=== PATIENT | female | born 1975 | race Caucasian/White ===

== ENCOUNTER → 2019-12-07 13:27 | Outpatient (BNVA) | payer OTHER, SELFPAY | PROVIDERS: Visit Provider Physician Assistant | DX: E66.9 Obesity, unspecified (principal); Z68.31 Body mass index [BMI] 31.0-31.9, adult; Z98.84 Bariatric surgery status | CPT/HCPCS: 99214 ==

== ENCOUNTER 2020-01-14 11:14 | Outpatient (REF) | payer OTHER, SELFPAY ==
[2020-01-14 12:47] LABS: MANUAL DIFF FLAG NO
[2020-01-14 12:59] LABS: Basophils Percent Auto 0.4 % (0-2); Eosinophils Absolute Auto 0.1 X10*3/uL (0.0-0.4); Eosinophils Percent Auto 0.8 % (0-4); Hemoglobin 12.3 g/dl (12.0-16.0); Imm Gran Abs Auto 0.02 X10*3/uL (0.00-0.03); Imm Gran Pct Auto 0.3 % (0.0-0.4); Lymphocytes Absolute Auto 1.6 X10*3/uL (1.2-4.9); Lymphocytes Percent Auto 22.3 % (20-40); Mean Corpuscular HGB Conc 31.5 g/dl (31.0-35.0); Mean Corpuscular Hemoglobin 26.7 pg (27.0-33.0); Mean Corpuscular Volume 84.6 fL (80-98); Mean Platelet Volume 9.5 fL (9.4-12.3); Monocytes Absolute Auto 0.6 X10*3/uL (0.1-1.2); Monocytes Percent Auto 7.9 % (2-11); Neutrophils Absolute Auto 4.9 X10*3/uL (2.0-8.3); Neutrophils Percent Auto 68.3 % (45-73); Platelet Count 346 X10*3/uL (160-400); Red Blood Count 4.61 X10*6/uL (4.20-5.50); Red Cell Distribution Width 12.9 % (11.0-16.0); White Blood Count 7.1 X10*3/uL (4.8-10.8)
[2020-01-14 13:08] LABS: Estimated Average Glucose 97 mg/dL
[2020-01-14 13:22] LABS: C Reactive Protein 0.31 mg/dL (< or = 0.50); Cholesterol 264 mg/dL; HDL Cholesterol 65 mg/dL; Iron 42 mcg/dL (30-160); LDL Cholesterol Calculated 187 mg/dl; Percent Iron Saturation 10 % (15-50); Total Iron Binding Capacity 442 mcg/dL (228-428); Triglycerides 62 mg/dL; Unsaturated Iron Binding 400 ug/dL
[2020-01-14 13:43] LABS: Ferritin 7 ng/mL (10-250); TSH reflex Free T4 0.32 mIU/mL (0.32-4.0); Vitamin D 25-OH Total 35.1 ng/mL (>30)
[2020-01-14 13:54] LABS: Folate 15.5 ng/mL (> or = 4.0); Vitamin B12 636 pg/mL (200-900)
[2020-01-15 07:16] LABS: Insulin Level Total 3.7 uIU/mL
[2020-01-17 13:12] LABS: Calcium (PTHI) 9.6 mg/dL (8.6-10.2); PTHI 54 pg/mL (14-64)
[2020-01-17 14:22] LABS: Zinc 72 mcg/dL (60-130)
[2020-01-20 11:36] LABS: Vitamin B1 7 nmol/L (8-30)
[2020-01-20 23:56] LABS: Vitamin A 34 mcg/dL (38-98)
== END 2020-01-14 11:15 | disposition home or self-care (01) ==
LOC: HO.LAB 11:14
PROVIDERS: Visit Provider Physician Assistant
DX: E66.3 Overweight (principal); Z98.84 Bariatric surgery status
CPT/HCPCS: 36415; 80061; 82306; 82607; 82728; 82746; 83036; 83519; 83525; 83540; 83970; 84425; 84443; 84590; 84630; 85025; 86140

== ENCOUNTER → 2022-08-08 10:59 | Outpatient (BNVA) | payer OTHER, SELFPAY | PROVIDERS: PCP Internal Medicine; Visit Provider Physician Assistant Surgical | DX: E66.9 Obesity, unspecified (principal); R11.0 Nausea; Z98.84 Bariatric surgery status; Z68.41 Body mass index [BMI] 40.0-44.9, adult | CPT/HCPCS: 99212 ==

== ENCOUNTER 2023-11-04 13:01 | Outpatient (AMB) | payer OTHER, SELFPAY ==
--- NOTE | 2023-11-04 13:01 | MHC.OFFVISWM ---
VS Expanded 11/04/23 13:14 Height 5 ft Weight 221 lb 8 oz BMI 43.3 Intake Visit Reasons: (TV) POST LSG 12/25/2017 Allergies hydrocodone [From VICODIN] Allergy (Unknown, Verified 08/08/22 11:23) SWELLING, DIFF SWALLOWING morphine [MORPHINE] Allergy (Unknown, Verified 08/08/22 11:23) PASSED OUT Penicillins [PENICILLINS] Allergy (Unknown, Verified 08/08/22 11:23) SWELLING, DIFF SWALLOWING Morphine Allergy (Unknown, Uncoded 06/02/19 00:00) low resp rate Penicillin Allergy (Unknown, Uncoded 06/02/19 00:00) itchhing,hives, swelling of throat vicodine Allergy (Unknown, Uncoded 06/02/19 00:00) itching, hivese, swelling of throat Medication List - Last Reconciled 11/04/23 by JAI Roberts cholecalciferol (vitamin D3) 25 mcg PO DAILY cyanocobalamin (vitamin B-12) 1,000 mcg PO DAILY iron,carbonyl-vitamin C 65 mg iron- 125 mg (Vitron-C) 1 tab PO DAILY multivit with min-folic acid 200 mcg tabs PO ondansetron 4 mg PO Q8H PRN pantoprazole 20 mg PO DAILY vitamin A 10,000 units PO DAILY HPI Comments Details: This?is a?48?yo female who is s/p LSG 12/25/2017. Weight at last visit on 08/08/2022 was 217.4 pounds with a BMI of 42.5, weight today is 221.5 pounds, representing a 43.3 pound weight loss with a BMI today of 43.3.? Pt reports a difficult bout with depression, comfort eating, binge eating, resulted in weight gain. She asks about revision and GLP1 drugs. Has been worked up in the past for episodes of syncope during exercise. Present meal plan includes: Premier premade protein shake for breakfast 8am 12pm salad or another shake dinner protein and vegetables admits she does not always make the best food choices, chooses quick things, starches Exercise routine includes: no current regimen but likes to walk sometimes does home videos [facility] Medical History (Updated 12/07/19 @ 13:30 by Yue G. Bradley, PA-C) Arthritis History of PCOS Obesity Sciatica Hyperlipidemia type II Depression Surgical History Hx laparoscopic cholecystectomy Hx of foot surgery Hx of hysterectomy Previous section S/P laparoscopic sleeve gastrectomy Status post laser cataract surgery of left eye Family History Mother Thyroid disease CHF (congestive heart failure) Father Hypertension High cholesterol Sister Hyperglycemia Sister No problems noted. Son No problems noted. Daughter No problems noted. Social History Alcohol intake: never Patient Tobacco Use Status: Never used Tobacco Telehealth Telehealth Telehealth Platform: Telephone Location of provider rendering services: other Location of patient: address on file Patient Identification confirmed using: Name, : Yes Telehealth method: voice only Patient verbally consented to treatment: Yes Patient verbally consented to billing insurance company: Yes Patient informed of any privacy concerns related to visit: Yes Minutes spent on Phone/Video with Pt.: 15 Assessment & Plan Assessment & Plan (1) S/P laparoscopic sleeve gastrectomy: Code(s): Z98.84 - Bariatric surgery status Category: Surgical (2) Obesity: Code(s): E66.9 - Obesity, unspecified Category: Medical Plan Sent pt yohan info to create a meal plan that works for her. If her PCP is agreeable to GLP1 agonists I can provide letter of support or office notes. Labs ordered. Pt will text me to let me know how plan is going for her. RTC 6-8 weeks, will also set up appt with Viviana as pt does not have a community therapist and is interested in coping stratgies to help avoid stress/emotional eating. I spent a total of 30 minutes reviewing/updating records, examining the patient and counseling the patient on weight management as detailed above. Orders: Orders Hemoglobin A1c Today Z98.84 - Bariatric surgery status Complete Blood Count Auto Diff Today Z98.84 - Bariatric surgery status Lipid Panel Today Z98.84 - Bariatric surgery status Vitamin B12 and Folate Today Z98.84 - Bariatric surgery status Zinc Today Z98.84 - Bariatric surgery status TSH reflex Free T4 Today Z98.84 - Bariatric surgery status Ferritin Today Z98.84 - Bariatric surgery status Insulin Today Z98.84 - Bariatric surgery status IRON PROFILE Today Z98.84 - Bariatric surgery status Comprehensive Met. Panel Today Z98.84 - Bariatric surgery status C Reactive Protein Today Z98.84 - Bariatric surgery status Vitamin B1 Today Z98.84 - Bariatric surgery status Vitamin A Today Z98.84 - Bariatric surgery status Vitamin D 25-OH Total Today Z98.84 - Bariatric surgery status
--- OUTSIDE RECORDS SUMMARY | 2023-11-04 13:02 | XMS_ITS | Continuity of Care Document ---
Author Organization [facility] Address [address] [place] [address]- Care Team Providers Care Health Information Clerk Name Role Phone Not on Staff, PCP Primary Care Physician Unavail able Encounter [facility] Date(s): 10/25/22 - 10/25/[address] [address]- Encounter Diagnosis Mesenteric panniculitis(Final) - 10/25/22 Discharge Disposition: A-D/C Home Attending Physician: Poli Brown MD Admitting Physician: Poli Brown MD Referring Physician: Not on Staff, Referring MD Allergies, Adverse Reactions, Alerts Substance Reaction Severity Status penicillin Swelling of throat Active Dogs Active morphine difficulty breathing, eyes rolled back in her head Active Vicodin Swelling of throat Active Cats Active Medications Multivitamin 1 tablet, By Mouth, Daily, 0 Refills, Maintenance, 03/28/21 15:49:00 EST, Partial fill upon patientrequest if the prescription is for a schedule II opioid drug. Start Date: 03/28/21 Status: Ordered Omeprazole By Mouth, Daily, 0 Refills, Maintenance, 10/25/22 11:22:00 EDT, Partial fill upon patient request if the prescription is for a schedule II opioid drug. Start Date: 10/25/22 Status: Ordered Tylenol Extra Strength = 1,000 mg, By Mouth, Every 6 hours, PRN Pain , Moderate, 0 Refills, Maintenance, 07/13/16 20:29:57 Start Date: 07/13/16 Status: Ordered Vitamin B12 50 mcg oral tablet 1 tablet = 50 mcg, By Mouth, Daily, # 30 tablet, 0 Refills, Maintenance, 03/28/21 15:49:00 EST, Tablet, Partial fill upon patient request if the prescription is for a schedule II opioid drug. Start Date: 03/28/21 Status: Ordered Vitamin D3 1000 intl units oral tablet 1 tablet = 25 mcg, By Mouth, Daily, # 30 tablet, 0 Refills, Maintenance, 03/28/21 15:49:00 EST, Tablet, Partial fill upon patient request if the prescription is for a schedule II opioid drug. Start Date: 03/28/21 Status: Ordered Problem List Condition Confirmation Course Effective Dates Status Roxanne Donahue Severe obesity Confirmed Active Results Radiology Reports * Exam Date Time Procedure Performing Provider Status 10/25/22 2:[address] Abdomen and Pelvi s W/O Contrast Radha Garcia; Auth (Verified) Notes: (CT Abdomen and Pelvis W/O Contrast) Reason For Exam: Flank pain, kidney stone suspected;Other: RESULT: CT Abdomen and Pelvis W/O Contrast CT Abdomen and Pelvis W/O Contrast Hx of Present Illness: Left upper quadrant pain. TECHNIQUE: Spiral CT through the abdomen and pelvis without IV contrast formatted in 3 planes. Thisstudy was performed oral contrast. Weight-based protocol using automatic tube modulation was used to optimize exposure parameters. CTDIvol Body: 25.18 mGy, DLP Body: 1291 mGy*cm. COMPARISON: None FINDINGS: Medical Appointment Scheduler View Findings, Lines and Tubes: None. Visualized Chest: Lung bases are clear. No pleural effusion. The heart is normal in size. No pericardial effusion. Diaphragm: Normal. Liver: Normal. Gallbladder: Absent consistent with prior cholecystectomy. Bile ducts: No biliary ductal dilation. Spleen: Normal. Pancreas: Normal. Adrenal glands: Normal. Kidneys and ureters: No hydronephrosis, stones, or noncontrast evidence of suspicious masses. Bladder: Normal. Reproductive organs: Unremarkable. Stomach, small bowel, and large bowel: Status post sleeve gastrectomy. No obstruction. No inflammatory change. Appendix: Not seen, but no evidence of appendicitis. Peritoneum and retroperitoneum: No ascites or pneumoperitoneum. Stranding of the central mesentery with multiple tiny mesenteric lymph nodes. Lymph nodes: No enlarged lymph nodes. Blood vessels: Normal. No aneurysm. Abdominal and pelvic wall: Unremarkable. Bones: No acute abnormality. IMPRESSION: Mild mesenteric edema suggesting mesenteric panniculitis. No acute abnormality. No renal calculi as queried. WSN: [id number] Ordering Physician: Poli Brown Dictated By: Juan M Howard MD Dictated Date/Time: 10/25/22 3:13 pm Reviewed By: Juan M Howard MD Signed By: Juan M Howard MD Signed Date/Time: 10/25/22 3:13 pm Transcribed By: CANDI Transcribed Date/Time: 10/25/22 3:04 pm Vital Signs Most recent to oldest [Reference Range]: 1 2 3 Height 153 cm (10/25/22 3:45 PM) 153 cm (10/25/22 1:40 PM) 153 cm (10/25/22 11:21 AM) Weight 99.8 kg (10/25/22 11:21 AM) Oxygen Saturation [94-100 %] 97 % (10/25/22 3:45 PM) 99 % (10/25/22 1:40 PM) 98 % (10/25/22 11:21 AM) Pulse Rate [55-90 bpm] 55 bpm (10/25/22 3:45 PM) 63 bpm (10/25/22 1:40 PM) 64 bpm (10/25/22 11:21 AM) Blood Pressure [90-138/55-84 mm Hg] 145/97mm Hg *H* (10/25/22 3:45 PM) 126/58mm Hg (10/25/22 1:40 PM) 165/96mm Hg *H* (10/25/22 11:21 AM) Respiratory Rate [16-30 br/min] 18 br/min (10/25/22 1:40 PM) 16 br/min (10/25/22 11:21 AM) Temperature [96.8-100.4 DegF] 98.2 DegF (10/25/22 3:45 PM) 98.2 DegF (10/25/22 1:40 PM) 97.5 DegF (10/25/22 11:21 AM) Mode of Delivery (Oxygen) Room air (10/25/22 3:45 PM) Room air (10/25/22 1:40 PM) Room air (10/25/22 11:21 AM) Blood pressure sites Arm, right (10/25/22 3:45 PM) Arm, left (10/25/22 1:40 PM) Temperature Route Oral (10/25/22 1:40 PM) Dry Weight 99.8 kg (10/25/22 11:21 AM) Dry Weight Obtained Via Standing scale (10/25/22 11:21 AM) Social History Social History Type Response Tobacco Other: Lifetime non- smoker. Sex Patient Care team information Care Team Personnel Name: Not on Staff, PCP Position: [facility] Physician (General Medicine) Member Role: PCP Name: Dyan Farfan RN Position: [facility] ED RN W/OE and Tasks Member Role: Patient Care Provider Name: Poli Brown MD Position: [facility] ED Medicine MD Member Role: Admitting Physician Address: Address: [address] [place] [address] Department of Emergency Medicine [address] Name: Marianna Beltran Position: [facility] ED TA [facility] Member Role: Microbiological Lab Technician Care Team Related Persons Name: ITA JAROD Address: home [address] [place] [id number] Name: QUYNH GARCIA Name: MEKA PRATER Address: home [address] [place] [id number] Name: KENROY GARCÍA Address: home [address] [place] [address]
--- OUTSIDE RECORDS SUMMARY | 2023-11-04 13:02 | XMS_ITS | Continuity of Care Document ---
Author Organization [facility] Address [address] [place] [id number]- Care Team Providers Care Fibre Technologist Name Role Phone Not on Staff, PCP Primary Care Physician Unavail able Encounter [facility] Date(s): 04/10/21 - 04/10/[address] [id number] Discharge Disposition: A-D/C Home Attending Physician: Redd Gtz DPM Admitting Physician: Redd Gtz DPM Referring Physician: Redd Gtz DPM Allergies, Adverse Reactions, Alerts Substance Reaction Severity Status penicillin Swelling of throat Active morphine difficulty breathing, eyes rolled back in her head Active Vicodin Swelling of throat Active Medications Multivitamin 1 tablet, By Mouth, Daily, 0 Refills, Maintenance, 03/28/21 15:49:00 EST, Partial fill upon patientrequest if the prescription is for a schedule II opioid drug. Start Date: 03/28/21 Status: Ordered Tylenol Extra Strength = 1,000 [...] Date: 03/28/21 Status: Ordered Problem List Condition Effective Dates Status Health Status Inform ant Obese class II(Confirmed) Active Vital Signs Most recent to oldest [Reference Range]: 1 2 3 Height 150 cm (04/10/21 6:21 AM) 150 cm (03/28/21 3:55 PM) Weight 87.5 kg (04/10/21 6:21 AM) 86.5 kg (03/28/21 3:55 PM) Oxygen Saturation [94-100 %] 95 % (04/10/21 9:15 AM) 97 % (04/10/21 9:00 AM) 100 % (04/10/21 6:21 AM) Pulse Rate [55-90 bpm] 66 bpm (04/10/21 6:21 AM) Body Mass Index [18.5-24.99] 38.89 *>HHI* (04/10/21 6:21 AM) 38.44 *>HHI* (03/28/21 3:55 PM) Blood Pressure [90-138/55-84 mm Hg] 133/67mm Hg (04/10/21 9:15 AM) 138/79mm Hg (04/10/21 9:00 AM) 156/95mm Hg *H* (04/10/21 6:21 AM) Respiratory Rate [16-30 br/min] 22 br/min (04/10/21 9:15 AM) 17 br/min (04/10/21 9:00 AM) Temperature [96.8-100.4 DegF] 97.6 DegF (04/10/21 10:00 AM) 97.8 DegF (04/10/21 9:00 AM) 97.7 DegF (04/10/21 6:21 AM) Mode of Delivery (Oxygen) Room air (04/10/21 10:15 AM) Room air (04/10/21 9:15 AM) Room air (04/10/21 9:00 AM) Blood pressure sites Arm, right (04/10/21 6:21 AM) Temperature Route Temporal (04/10/21 10:00 AM) Temporal (04/10/21 9:00 AM) Temporal (04/10/21 6:21 AM) Dry Weight 87.5 kg (04/10/21 6:21 AM) 86.5 kg (03/28/21 3:55 PM) Weight Obtained Via Standing scale (04/10/21 6:21 AM) Patient/family stated (03/28/21 3:55 PM) Dry Weight Obtained Via Patient/family s tated (03/28/21 3:55 PM) Social History Social History Type Response Smoking Status Never smoker entered on: 07/13/16 Sex
--- OUTSIDE RECORDS SUMMARY | 2023-11-04 13:02 | XMS_ITS | Continuity of Care Document ---
Author Organization [facility] ter Address [address] [place] [id number]- Care Team Providers Care Resistance Brazer Name Role Phone Chantel Rai MD Primary Care Physician Encounter [facility] Date(s): 02/05/22 - 02/05/[address] [address] Discharge Disposition: A-D/C Home Attending Physician: Redd Gtz DPM Admitting Physician: Redd Gtz DPM Referring Physician: Redd Gtz DPM Allergies, Adverse Reactions, Alerts Substance Reaction Severity Status penicillin Swelling of throat Active Cats Active Dogs Active Vicodin Swelling of throat Active morphine difficulty breathing, eyes rolled back in her head Active Medications Multivitamin 1 tablet, By Mouth, [...] List Condition Confirmation Course Effective Dates Status Health St atus Informant Severe obesity Confirmed Active Vital Signs Most recent to oldest [Reference Range]: 1 2 3 Height 122 cm (02/05/22 11:27 AM) 122 cm (02/04/22 1:25 PM) Weight 93.6 kg (02/05/22 11:27 AM) 91.36 kg (02/04/22 1:25 PM) Oxygen Saturation [94-100 %] 99 % (02/05/22 2:45 PM) 100 % (02/05/22 2:30 PM) 99 % (02/05/22 11: AM) Pulse Rate [55-90 bpm] 60 bpm (02/05/22: AM) Body Mass Index [18.5-24.99 kg/m2] 62.89 kg/m2 *>HHI* (02/05/22 11:27 AM) 61.38 kg/m2 *>HHI* (02/04/22 1:25 PM) Blood Pressure [90-138/55-84 mm Hg] 138/76mm Hg (02/05/22 2:45 PM) 124/80mm Hg (02/05/22 2:30 PM) 143/62mm Hg *H* (02/05/22: AM) Respiratory Rate [16-30 br/min] 16 br/min (02/05/22 2:45 PM) 25 br/min (02/05/22 2:30 PM) 21 br/min (02/05/22 11: AM) Temperature [96.8-100.4 DegF] 97.4 DegF (02/05/22 2:30 PM) 99.0 DegF (02/05/22 11: AM) Mode of Delivery (Oxygen) Room air (02/05/22 2:45 PM) Room air (02/05/22 2:30 PM) Room air (02/05/22 11:27 AM) Blood pressure sites Arm, right (02/05/22 2:45 PM) Arm, right (02/05/22 2:30 PM) Arm, left (02/05/22 11:27 AM) Temperature Route Temporal (02/05/22 2:30 PM) Temporal (02/05/22 11:27 AM) Dry Weight 93.6 kg (02/05/22 11:27 AM) 91.36 kg (02/04/22 1:25 PM) Weight Obtained Via Standing scale (02/05/22 11:27 AM) Dry Weight Obtained Via Standing scale (02/05/22 11:27 AM) Social History Social History Type Response Tobacco Other: Lifetime non- smoker. Sex Note * Heather Woodard RN: PERFORM Event Display: Discharge/Transfer Note Hospital Authored Date: [id number] Nursing Discharge Note Entered On: 02/05/2022 15:18 EST Performed On: 02/05/2022 15:17 EST by Heather Woodard RN Nursing Discharge Note 2 Discharge Time : 02/05/2022 15:11 EST Discharge Level of Care at Discharge : Home/[facility]oster Care Patient Left Unit Via : Wheelchair Patient Accompanied Off Unit with : Significant other DC Instructions Provided & Signed by Pt : Yes Patient Understands D/C Instructions : Yes Patient Instructions Discharge Signed : Yes Did Pt have Specialty Bed or Wound Vac : No Heather Woodard RN - 02/05/2022 15:17 EST * Heather Woodard RN: PERFORM Event Display: Patient Education/Instruction Authored Date: [id number] Inpatient Adult Discharge Instructions [address] [address] Name: IOANA JEAN BAPTISTE : 1975 Visit: 02/05/2022 10:59:00 Current Date: 02/05/2022 15:05 Account: [id number] Inpatient Adult Discharge Instructions We would like to thank you for allowing us to assist you with your healthcare needs. The following includes patient education materials and information regarding your injury/illness. Our entire staffstrives to provide an excellent experience for our patients and their families. PLEASE ENSURE YOU FOLLOW-UP PER THE INSTRUCTIONS BELOW! ?? YOUR OPINION IS IMPORTANT TO US! Please complete the survey you may receive by mail or email. Your feedback will be used to make improvements to the healthcare experiences of our patients and their families. Surveys are administered by [employer] ?? If further treatment with your primary care physician or another doctor is recommended, it is important for you to keep the appointment. Call your primary care physician or return to the Emergency Department immediately if your condition worsens, fails to improve, or new symptoms develop. If you need to find a doctor, you can call [facility] for a referral at [phone] or toll free at [phone] or log in to [email or web address].. ?? You can view and manage your care through the patient portal or by using a health care yohan of your choosing. [employer] is a website that allows you to securely view your medical information including your hospital discharge summary, office visit summaries, medications and follow-up visits. You can also request appointments, renew medications, and request access to your medical information using a health care yohan of your choosing, or just ask a question. You can enroll at [email or web address] or register during your next office visit. You have been discharged from [facility], Patient Care Unit: [facility]. If you have any questions regarding these instructions after you leave, please call us and we will be happy to assist you. [facility] Your Care Team Attending Physician Redd Gtz DPM Discharging Providers Ulisses GARCIA, Redd Ramírez Reason for Admission HAMMER TOES FOOTCORRECTION CS DS Tests Performed Below is a partial list of the tests performed during your hospitalization. You may have had other tests and procedures not included in this list. Please discuss all test results with your provider. Primary Care Provider Fredi AYERS, Chantel Cornell Advance Directive Health Care Proxy on File No No qualifying data available. Discharge Vitals Temperature: 97.4 DegF Height: 122 cm Pulse Rate: 60 bpm Weight: 93.6 kg Respiratory Rate: 16 br/min Body Mass Index:??62.89 kg/m2??Critical Systolic Blood Pressure: 138 mm Hg Body surface area: 1.78 Diastolic Blood Pressure: 76 mm Hg ?? Oxygen Saturation: 99 % ?? Studies Pending All tests and labs ordered during this hospital stay have been completed unless listed below. Please discuss all pending results with your provider listed above in these instructions. ?? No incomplete studies found What to do next Instructions From Your Doctor Discharge Orders Instructions from your Care Team Please see additional discharge instructions. Prescriptions eprescribed. You Need to Schedule the Following Appointments Follow Up with??Redd Gtz When?? Where: [address] [facility] [address] [facility] [place] [address]- Business (1) Follow Up with??Chantel anne Fredi When??In 0 days Where: [address] [place] [address]- Business (1) Discharge Medications IOANA JEAN BAPTISTE :1975 Visit Date:02/05/2022 Medications: Please continue your medications until treatment is completed or stopped by your provider. Medications not listed below should be discontinued. Discuss any questions related to medications with your provider. What How Much When Instructions Next Dose Unchanged Acetaminophen (Tylenol Extra Strength) 1,000 Milligram Oral Every 6 hours as needed for Pain , Moderate Unchanged Cholecalciferol (Vitamin D3 1000 intl units oral tablet) 1 tab(s) Oral Daily Unchanged Cyanocobalamin (Vitamin B12 50 mcg oral tablet) 1 tab(s) Oral Daily Unchanged Multivitamin 1 tab(s) Oral Daily Test Results Below is a partial list of the most recent Laboratory test results done prior to this discharge. You may have had other tests and procedures not included in this list. Please discuss all test resultswith your provider. Allergies (NKA means No Known Allergies) Cats Dogs Vicodin??(Swelling of throat) morphine??(difficulty breathing, eyes rolled back in her head) penicillin??(Swelling of throat) Problems Active Problems??(1) Severe obesity?? Education Materials Below is the list of Educational Leaflet Providered with your Discharge Instructions. Surgery Medical Daystay Surgical Overnight Discharge Instructions?? Valuables and Belongings I fully understand and agree that [facility] accepts no responsibility for all my personal property including clothing, toilet articles, radios, jewelry, dentures, hearing aids, rings, money, or any other property that is in my possession or is brought to me after admission. I understand certain valuables may be placed in a hospital safe for a short period of time. I understand that the hospital is not liable for loss or damage due to accident, fire, or other natural occurrence while said property is in the safe. I accept full responsibility for any personal property that I keep with me, and will not hold the hospital responsible in case of loss or disappearance. I acknowledge that i have been encouraged to send valuables and belongings home. ?? Review of Valuable and Belonging List: With patient Date for Pt to Sign Valuables/Belongings: 02/05/22 11:27:00 ?? Valuables & Belongings ?? Clothes Electronic devices Jewelry Monetary Items Personal devices Miscellaneous Medications (Valuables) Valuables at Bedside Jacket, Pants, Shirt, Shoes, Undergarments ? Valuables Sent Home ? Valuables Sent to Security ? Other Discharge Information ? Pulmonary Rehab Status?? Pulmonary Rehab Discharge Status?? Respiratory Rate: 16 br/min ? Common Emergency Awareness Tips IS IT A STROKE? Act FAST and Check for these signs: FACE Does the face look uneven? ARM Does one arm drift down? SPEECH Does their speech sound strange? TIME Call at any sign of stroke ?? Heart Attack Signs Chest discomfort: Most heart attacks involve discomfort in the center of the chest and lasts more than a few minutes, or goes away and comes back. It can feel like uncomfortable pressure, squeezing, fullness or pain. Discomfort in upper body: Symptoms can include pain or discomfort in one or both arms, back, neck, jaw or stomach. Shortness of breath: With or without discomfort. Other signs: Breaking out in a cold sweat, nausea, or lightheaded. Remember, MINUTES DO MATTER. If you experience any of these heart attack warning signs, call to get immediate medical attention! ?? Smoking can increase your chances of developing chronic health problems and can cause harmful effects to other family members in your house. If you smoke, you are strongly encouraged to quit. Please call [employer] at [phone] or [phone] ([phone]) or log in to [email or web address] for referrals to smoking cessation programs. ?? The National Suicide Prevention Hotline is available 16/09 if you or someone you know needs to find a reason to keep living. By calling 6-991-996-talk (7847) you'll be connected to a skilled, trained counselor at a crisis center in your area. INPATIENT DISCHARGE INSTRUCTIONS SIGNATURE PAGE IOANA JEAN BAPTISTE [facility]:[id number] Location:[facility] Registration Date and Time:02/05/2022 10:59 EST Primary Care Physician: Chantel Rai MD, I IOANA JEAN BAPTISTE, have received the above patient education materials/instructions and have verbalized understanding. If ambulance or transport services are being used I further acknowledge being given a choice of service. ?? If you need to contact me, please call me at this number: . Patient/Chicken Cleaner Name: Patient/Chicken Cleaner Signature: Relationship to Patient: Witness Name/Signature: Date: * Heather Woodard RN: PERFORM, SIGN, VERIFY Event Display: Patient Education Handout Authored Date: [id number] * Heather Woodard RN: PERFORM Event Display: Patient Education Leaflets Authored Date: [id number] Surgery Medical Daystay Surgical Overnight Discharge Instructions ?? 295 Medical Daystay/Surgical Overnight Discharge Instructions ? Since your coordination and judgment may be altered by medication and/or anesthesia, a responsible adult must drive you home from the hospital. ? If you have received medication for pain or sedation while under our care, you should not drive, operate machinery, drink alcohol, or sign any legal documents for 24 hours.?? You should have someone with you at home tonight. ? Remain at home the day of discharge.?? You may be up and about unless otherwise instructed by your physician. ? You may resume your daily prescription medication schedule.?? Any depressant medication should be avoided for 24 hours unless otherwise instructed by your surgeon or anesthesiologist. ? Call your physician for a follow-up appointment.? If you experience unusual or severe pain not relied by your pain medication, excessive bleedingor drainage, persistent nausea and vomiting, excessive swelling or redness, foul odor from incisionsite or fever over 100.6F, you need to call your physician. ? A follow-up phone call by a nurse will be made the day after your procedure.?? If you have stayed with us over night, you will not be receiving a follow-up phone call. ? Nausea and vomiting are a common side effect of prescription pain medication.?? We recommend that pills are not taken on an empty stomach.?? While taking any prescription pain medication you should not drive or drink alcohol. ? Patient Care team information Care Team Personnel Name: Fredi AYERS, Chantel Cornell Position: Reference Physician Member Role: PCP Address: Address: [address] [place] [address]- Care Team Related Persons Name: JAROD JEAN BAPTISTE Address: home [address] [place] [id number] Name: QUYNH VILLA Name: MEKA PRATER Address: home [address] [place] [id number] Name: KENROY GARCÍA Address: home [address] [place] [address]
--- OUTSIDE RECORDS SUMMARY | 2023-11-04 13:02 | XMS_ITS | Continuity of Care Document ---
Author Organization [facility] Address [address] [place] [address]- Care Team Providers Care Service Order Clerk Name Role Phone Chantel Rai MD Primary Care Physician Encounter [facility] Date(s): 01/15/22 - 02/14/22 [facility] [address] [place], [place] [address] Attending Physician: Alexa Richards Admitting Physician: AdmtrAlexa Referring Physician: Admtr, Ar8 Allergies, Adverse Reactions, Alerts Substance Reaction Severity Status penicillin Swelling of throat Active morphine difficulty breathing, eyes rolled back in her head Active Vicodin Swelling of throat Active Cats Active Dogs Active Medications Multivitamin 1 tablet, By Mouth, [...] St [facility] Informant Severe obesity Confirmed Active Social History Social History Type Response Tobacco Other: Lifetime non- smoker. Sex Patient Care team information Care Team Personnel Name: Chantel Rai MD Position: Reference Physician Member Role: PCP Address: Address: [address] [place] [address]- Care Team Related Persons Name: JAROD JEAN BAPTISTE Address: home [address] [place] [address] Name: QUYNH VILLA Name: MEKA PRATER Address: home [address] [place] [address] Name: KENROY GARCÍA Address: home [address] [place] [address]
[2023-11-04 13:14] VITALS: BMI 43.3
== END 2023-11-04 13:33 | disposition home or self-care (01) ==
LOC: HO.HBS 13:01
PROVIDERS: PCP Internal Medicine; Visit Provider Physician Assistant Surgical
DX: E66.9 Obesity, unspecified (principal); Z98.84 Bariatric surgery status
CPT/HCPCS: 99214

== ENCOUNTER → 2023-11-04 13:01 | Outpatient (BNVA) | payer OTHER, SELFPAY | PROVIDERS: PCP Internal Medicine; Visit Provider Physician Assistant Surgical ==

== ENCOUNTER 2023-11-07 10:33 | Outpatient (REF) | payer OTHER, SELFPAY ==
[2023-11-07 11:00] LABS: MANUAL DIFF FLAG NO
[2023-11-07 11:43] LABS: Basophils Percent Auto 0.5 % (0-2); Eosinophils Absolute Auto 0.1 X10*3/uL (0.0-0.4); Eosinophils Percent Auto 1.8 % (0-4); Hematocrit 42.2 % (37.0-47.0); Hemoglobin 14.5 g/dl (12.0-16.0); Imm Gran Abs Auto 0.02 X10*3/uL (0.00-0.03); Imm Gran Pct Auto 0.3 % (0.0-0.4); Lymphocytes Absolute Auto 1.5 X10*3/uL (1.2-4.9); Lymphocytes Percent Auto 24.1 % (20-40); Mean Corpuscular HGB Conc 34.4 g/dl (31.0-35.0); Mean Corpuscular Hemoglobin 30.3 pg (27.0-33.0); Mean Corpuscular Volume 88.1 fL (80.0-98.0); Mean Platelet Volume 9.5 fL (9.4-12.3); Monocytes Absolute Auto 0.6 X10*3/uL (0.1-1.2); Neutrophils Percent Auto 64.3 % (45-73); Platelet Count 270 X10*3/uL (160-400); Red Blood Count 4.79 X10*6/uL (4.20-5.50); Red Cell Distribution Width 12.2 % (11.0-16.0); White Blood Count 6.2 X10*3/uL (4.8-10.8)
[2023-11-07 11:49] LABS: Estimated Average Glucose 97 mg/dL
[2023-11-07 12:30] LABS: Alanine Aminotransferase 25 U/L (0-31); Albumin Level 4.1 g/dL (3.5-5.0); Alkaline Phosphatase 97 U/L (39-117); Anion Gap 12 (12-20); Aspartate Amino Transferase 23 U/L (5-31); Bilirubin Total 0.7 mg/dL (0.0-1.0); Blood Urea Nitrogen 10 mg/dL (9-16); C Reactive Protein 1.63 mg/dL (< or = 0.50); Calcium 9.7 mg/dL (8.4-10.2); Carbon Dioxide 28 mmol/L (22-29); Chloride 104 mmol/L (96-108); Cholesterol 292 mg/dL (<200); Estimated Glomerular Filt Rate > 60; Glucose Random 90 mg/dL (60-115); HDL Cholesterol 57 mg/dL (>40); Iron 87 mcg/dL (30-160); LDL Cholesterol Calculated 213 mg/dL (<100); Percent Iron Saturation 30 % (15-50); Potassium 4.3 mmol/L (3.3-5.1); Sodium 140 mmol/L (135-145); Total Iron Binding Capacity 286 mcg/dL (228-428); Total Protein 7.3 g/dL (6.5-8.0); Triglycerides 113 mg/dL (<150); Unsaturated Iron Binding 199 ug/dL
[2023-11-07 12:56] LABS: Folate 15.4 ng/mL (> or = 4.0); Vitamin B12 1747 pg/mL (200-900)
[2023-11-07 12:57] LABS: Ferritin 63 ng/mL (10-250); Insulin 5 uU/mL (2-29); TSH reflex Free T4 0.54 uIU/mL (0.32-4.0); Vitamin D 25-OH Total 61.9 ng/mL (>30)
[2023-11-11 04:43] LABS: Zinc 66 mcg/dL (60-130)
[2023-11-12 18:08] LABS: Vitamin A 60 mcg/dL (38-98)
[2023-11-13 15:28] LABS: Vitamin B1 7 nmol/L (8-30)
== END 2023-11-07 10:34 | disposition home or self-care (01) ==
LOC: HO.LAB 10:33
PROVIDERS: Visit Provider Physician Assistant Surgical
DX: Z98.84 Bariatric surgery status (principal)
CPT/HCPCS: 36415; 80053; 80061; 82306; 82607; 82728; 82746; 83036; 83525; 83540; 84425; 84443; 84590; 84630; 85025; 86140

== ENCOUNTER → 2023-11-21 09:11 | Outpatient (AMB) | payer OTHER, SELFPAY ==
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
== END ==
PROVIDERS: PCP Internal Medicine; Visit Provider Counselor Mental Health
DX: F43.20 Adjustment disorder, unspecified (principal)
CPT/HCPCS: 90837

== ENCOUNTER → 2023-11-21 09:11 | Outpatient (BNVA) | payer OTHER, SELFPAY | PROVIDERS: PCP Internal Medicine; Visit Provider Counselor Mental Health ==

== ENCOUNTER → 2023-12-10 09:07 | Outpatient (BNVA) | payer OTHER, SELFPAY | PROVIDERS: PCP Internal Medicine; Visit Provider Counselor Mental Health ==

== ENCOUNTER → 2023-12-10 09:07 | Outpatient (AMB) | payer OTHER, SELFPAY ==
--- NOTE | 2023-12-10 09:00 | A.OFFWM_ITS ---
Intake Intake Visit Reasons: VIDEO PO LSG 12/25/2017 Allergies hydrocodone [From VICODIN] Allergy (Unknown, Verified 08/08/22 11:23) SWELLING, DIFF SWALLOWING morphine [MORPHINE] Allergy (Unknown, Verified 08/08/22 11:23) PASSED OUT Penicillins [PENICILLINS] Allergy (Unknown, Verified 08/08/22 11:23) SWELLING, DIFF SWALLOWING Morphine Allergy (Unknown, Uncoded 06/02/19 00:00) low resp rate Penicillin Allergy (Unknown, Uncoded 06/02/19 00:00) itchhing,hives, swelling of throat vicodine Allergy (Unknown, Uncoded 06/02/19 00:00) itching, hivese, swelling of throat PFSH Medical History (Updated 12/07/19 @ 13:30 by Yue Bradley PA-C) Arthritis History of PCOS Obesity Sciatica Hyperlipidemia type II Depression Surgical History Hx laparoscopic cholecystectomy Hx of foot surgery Hx of hysterectomy Previous section S/P laparoscopic sleeve gastrectomy Status post laser cataract surgery of left eye Family History Mother Thyroid disease CHF (congestive heart failure) Father Hypertension High cholesterol Sister Hyperglycemia Sister No problems noted. Son No problems noted. Daughter No problems noted. Social History Alcohol intake: never Patient Tobacco Use Status: Never used Tobacco Behavioral Health Assessment Weight Management Therapy Therapy Notes Details PT presents for a follow up visit via Telehealth, PT reports she has started Wegovy on Friday, prescribed by her PCP for weight loss. Interventions: Discussed functioning and challenges. Used CBT-based interventions. Activities provided: Behavioral activation plan and Daily journal Discussed ways to schedule her day in a way she increased engagement in constructive activities and become more intentional with her time. Psychoeducation about cycle of depression, unhealthy patterns, how habit building and behavioral modification works, and, Instant gratification Vs sustained happiness and sense of satisfaction. Assessment/Response: * MSE: witin normal limits, motivated, functioning well. * Risk factors: None reported/identified. PT was open, active and engaged. Responded well to interventions, was reflective about her Sx and coping patterns. Presenting Concerns Referral Source [facility] Provider. Asley K. Reason for referral support for weight gain after bariatric surgery in 2018 Precipitating Event Patient was 163Lbs in 2020. Assessment & Plan Assessment & Plan (1) Adjustment disorder: Code(s): F43.20 - Adjustment disorder, unspecified Plan Follow up in 3 weeks. Next yohan: 12/30/23 at 9am. Telehealth Telehealth Telehealth Telehealth Platform: [employer] Location of provider rendering services: other (Home office. [place], [place].) Location of patient: address on file Patient Identification confirmed using: Name, : Yes Telehealth method: voice only Patient verbally consented to treatment: Yes Patient verbally consented to billing insurance company: Yes Patient informed of any privacy concerns related to visit: Yes Minutes spent on Phone/Video with Pt.: 60 Coding Level of Care Code Established Pt Tele Psytx >53 mins (70747) Patient Type Established Diagnoses Adjustment disorder F43.20 Time Spent (min) 60
== END ==
LOC: HO.HBST 09:07
PROVIDERS: PCP Internal Medicine; Visit Provider Counselor Mental Health
DX: F43.20 Adjustment disorder, unspecified (principal)
CPT/HCPCS: 90837

== ENCOUNTER → 2023-12-30 09:21 | Outpatient (AMB) | payer OTHER, SELFPAY ==
--- NOTE | 2023-12-30 09:15 | A.OFFWM_ITS ---
Intake Intake Visit Reasons: VIDEO PO LSG 12/25/2017 Allergies hydrocodone [From VICODIN] Allergy (Unknown, Verified 01/19/24 10:52) SWELLING, DIFF SWALLOWING morphine [MORPHINE] Allergy (Unknown, Verified 01/19/24 10:52) PASSED OUT Penicillins [PENICILLINS] Allergy (Unknown, Verified 01/19/24 10:52) SWELLING, DIFF SWALLOWING Morphine Allergy (Unknown, Uncoded 06/02/19 00:00) low resp rate Penicillin Allergy (Unknown, Uncoded 06/02/19 00:00) itchhing,hives, swelling of throat vicodine Allergy (Unknown, Uncoded 06/02/19 00:00) itching, hivese, swelling of throat PFSH Medical History (Updated 12/07/19 @ 13:30 by Yue Bradley PA-C) Arthritis History of PCOS Obesity Sciatica Hyperlipidemia type II Depression Surgical History Hx of hysterectomy Hx of foot surgery Status post laser cataract surgery of left eye Previous section Hx laparoscopic cholecystectomy S/P laparoscopic sleeve gastrectomy Family History Mother Thyroid disease CHF (congestive heart failure) Father Hypertension High cholesterol Sister Hyperglycemia Sister No problems noted. Son No problems noted. Daughter No problems noted. Social History Alcohol intake: never Patient Tobacco Use Status: Never used Tobacco Behavioral Health Assessment Weight Management Therapy Therapy Notes Details Subjective: PT presents in a good mood and very motivated. she has lost 10Lbs in 1 month after she started Wegovy. - Current weight 211Lbs. Objective: PT presents for a follow up visit via Telehealth . Processed functioning, routine and functioning. Worked on behavioral activation for self-care practices and weight-management. Used cPT and CBT tecniques. Assessment/Response: * Mental status: WNL * Risk reported/identified: None Assessment & Plan Assessment & Plan (1) Adjustment disorder: Code(s): F43.20 - Adjustment disorder, unspecified Plan Follow up in 1 month. Telehealth Telehealth [facility]health [facility] Location of provider rendering services: other Location of patient: address on file Patient Identification confirmed using: Name, : Yes Telehealth method: voice only Patient verbally consented to treatment: Yes Patient verbally consented to billing insurance company: Yes Patient informed of any privacy concerns related to visit: Yes Minutes spent on Phone/Video with Pt.: 45 Coding Level of Care Code Established Pt Tele Psytx 45 mins ([id number]) Patient Type Established Diagnoses Adjustment disorder F43.20 Time Spent (min) 45
== END ==
LOC: HO.HBST 09:21
PROVIDERS: PCP Internal Medicine; Visit Provider Counselor Mental Health
DX: F43.20 Adjustment disorder, unspecified (principal)
CPT/HCPCS: 90834

== ENCOUNTER 2024-01-19 10:40 | Outpatient (AMB) | payer OTHER, SELFPAY ==
--- NOTE | 2024-01-19 10:47 | MHC.OFFVISWM ---
VS Expanded 01/19/24 10:59 BP 151/78 H Blood Pressure Location Rt brachial Blood Pressure Position Sitting Pulse 72 Pulse Source Pulse Oximeter Temp 97.8 F Temperature Source Temporal Artery Scan Pulse Oximetry 96 Oxygen Delivery Method Room Air Height 5 ft Weight 209 lb 12.8 oz BMI 41.0 Body Fat % 42.3 Body Fat Mass 88.6 Fat Free Mass 121.0 Visceral Fat Rating 12.0 Body Water % 41.2 Body Water Mass 86.4 Muscle Mass/Score 114.8 Basal Metabolic Rate/Score 1,683 Intake Visit Reasons: OV PO LSG 12/25/2017 Allergies hydrocodone [From VICODIN] Allergy (Unknown, Verified 01/19/24 10:52) SWELLING, DIFF SWALLOWING morphine [MORPHINE] Allergy (Unknown, Verified 01/19/24 10:52) PASSED OUT Penicillins [PENICILLINS] Allergy (Unknown, Verified 01/19/24 10:52) SWELLING, DIFF SWALLOWING Morphine Allergy (Unknown, Uncoded 06/02/19 00:00) low resp rate Penicillin Allergy (Unknown, Uncoded 06/02/19 00:00) itchhing,hives, swelling of throat vicodine Allergy (Unknown, Uncoded 06/02/19 00:00) itching, hivese, swelling of throat Medication List - Last Reconciled 01/19/24 by JAI Roberts atorvastatin 20 mg PO DAILY cholecalciferol (vitamin D3) 25 mcg PO DAILY cyanocobalamin (vitamin B-12) 1,000 mcg PO DAILY iron,carbonyl-vitamin C 65 mg iron- 125 mg (Vitron-C) 1 tab PO DAILY multivit with min-folic acid 200 mcg tabs PO ondansetron 4 mg PO Q8H PRN pantoprazole 20 mg PO DAILY semaglutide (weight loss) (Wegovy) mg subcut thiamine HCl (vitamin B1) 100 mg PO DAILY vitamin A 10,000 units PO DAILY HPI Comments Details: This?is a?48?yo female who is s/p LSG 12/25/2017. Weight loss of 11.7lbs since last OV 2 mo ago.? No complaints of nausea, emesis, abdominal pain. Reflux occasionally at night when she lies flat. Was started on Wegovy by PCP. Some nausea in AM. Infrequent BMs, but not painful, no bloating. Was also started on a statin. Was meeting with Viviana. Present meal plan includes: Premier premade protein shake for breakfast 8am 12pm salad or another shake dinner protein and vegetables not snacking now staying hydrated Exercise routine includes: no current regimen but likes to walk sometimes does home videos Pt reports issues with excess skin of abdomen. Has had to use powder for rashes that have started occurring. These rashes are painful and itchy. Has to clean and wash frequently- gets moisture/sweat in the skin folds which has an unpleasant odor. Activities of daily living are more difficult including bending over/squatting and putting pants on that fit appropriately. Excess skin of legs rubs together and chafes. This is very uncomfortable and painful. This makes walking more difficult/painful also. This is particularly bad in summertime when weather is warmer and she wears shorts. Did the patient ever have any of these conditions and are they resolved or still being treated? GERD: yes, questionnaire below- on PPI PRADIP:?never DM:? never HTN:? never Hyperlipidemia:? on statin Post op complications:? none Have you been diagnosed with reflux (GERD)? yes Score 0-5: 0=no symptoms, 1=noticeable but not bothersome (slight or occasional), 2=noticeable, bothersome but not daily, 3=bothersome and daily, 4=affects daily activities, 5=incapacitating, unable to do daily activities How bad is the heartburn: 2 Heartburn when lying down: 2 Heartburn when standing up: 0 Heartburn after meals: 0 Does heartburn change your diet: 0 Does heartburn wake you up from sleep: 3 Do you have difficulty swallowin Do you have pain with swallowin If you take medication for reflux, does this affect your daily life: 0 Total score: 7 [facility] Medical History (Updated 12/07/19 @ 13:30 by Yue Bradley PA-C) Arthritis History of PCOS Obesity Sciatica Hyperlipidemia type II Depression Surgical History Hx of hysterectomy Hx of foot surgery Status post laser cataract surgery of left eye Previous section Hx laparoscopic cholecystectomy S/P laparoscopic sleeve gastrectomy Family History Mother Thyroid disease CHF (congestive heart failure) Father Hypertension High cholesterol Sister Hyperglycemia Sister No problems noted. Son No problems noted. Daughter No problems noted. Social History Alcohol intake: never Patient Tobacco Use Status: Never used Tobacco Physical Exam Vital Signs: Last Vital Signs Temp 97.8 F 01/19/24 10:59 Pulse 72 01/19/24 10:59 BP 151/78 H 01/19/24 10:59 Pulse Ox 96 01/19/24 10:59 Oxygen Delivery Method Room Air 01/19/24 10:59 BMI result Body Mass Index 41.0 Assessment & Plan Assessment & Plan (1) S/P laparoscopic sleeve gastrectomy: Code(s): Z98.84 - Bariatric surgery status Category: Surgical (2) Obesity: Code(s): E66.9 - Obesity, unspecified Category: Medical Plan Patient doing well on Wegovy. Continue same meal plan, ensure adequate protein intake. Pt experiencing issues of excess skin of legs and abdomen, trying conservative measures for treatment. Discussed GERD triggers, pt will track what she eats in evenings when she experiences it- may take extra dose of PPI, Pepcid or Tums for infrequent episodes. Has appt with Viviana 01/28. RTC 3 months. I spent a total of 30 minutes reviewing/updating records, examining the patient and counseling the patient on weight management as detailed above.
[2024-01-19 10:59] VITALS: BP 151/78; PULSE 72; TEMP 36.6; O2SAT 96; BMI 41.0
== END 2024-01-19 11:51 | disposition home or self-care (01) ==
PROVIDERS: PCP Internal Medicine; Visit Provider Physician Assistant Surgical
DX: E66.9 Obesity, unspecified (principal); E66.813 Obesity, class 3; Z68.41 Body mass index [BMI] 40.0-44.9, adult; Z98.84 Bariatric surgery status
CPT/HCPCS: 99214; G2211

== ENCOUNTER → 2024-01-19 10:40 | Outpatient (BNVA) | payer OTHER, SELFPAY | PROVIDERS: PCP Internal Medicine; Visit Provider Physician Assistant Surgical | DX: E66.9 Obesity, unspecified (principal); L98.7 Excessive and redundant skin and subcutaneous tissue; Z68.41 Body mass index [BMI] 40.0-44.9, adult; Z90.49 Acquired absence of other specified parts of digestive tract; Z90.3 Acquired absence of stomach [part of] | CPT/HCPCS: 99212 ==

== ENCOUNTER 2024-02-10 10:26 | Outpatient (AMB) | payer OTHER, SELFPAY ==
--- NOTE | 2024-02-10 09:20 | A.OFFWM_ITS ---
Intake Intake Visit Reasons: (TV) PO LSG 12/25/2017 Allergies hydrocodone [From VICODIN] Allergy (Unknown, Verified 01/19/24 10:52) SWELLING, DIFF SWALLOWING morphine [MORPHINE] Allergy (Unknown, Verified 01/19/24 10:52) PASSED OUT Penicillins [PENICILLINS] Allergy (Unknown, Verified 01/19/24 10:52) SWELLING, DIFF SWALLOWING Morphine Allergy (Unknown, Uncoded 06/02/19 00:00) low resp rate Penicillin Allergy (Unknown, Uncoded 06/02/19 00:00) itchhing,hives, swelling of throat vicodine Allergy (Unknown, Uncoded 06/02/19 00:00) itching, hivese, swelling of throat PFSH Medical History (Updated 12/07/19 @ 13:30 by Yue Bradley PA-C) Arthritis History of PCOS Obesity Sciatica Hyperlipidemia type II Depression Surgical History Hx of hysterectomy Hx of foot surgery Status post laser cataract surgery of left eye Previous section Hx laparoscopic cholecystectomy S/P laparoscopic sleeve gastrectomy Family History Mother Thyroid disease CHF (congestive heart failure) Father Hypertension High cholesterol Sister Hyperglycemia Sister No problems noted. Son No problems noted. Daughter No problems noted. Social History Alcohol intake: never Patient Tobacco Use Status: Never used Tobacco Behavioral Health Assessment Weight Management Therapy Therapy Notes Details Subjective: PT presents feeling very motivated and stated she has some anxiety due to the holidays as her family is not as supportive, besides her partner. She continues on the weight-loss medication and she is down to 205Lbs. Objective: PT presents for a follow up visit over the phone. . Discussed functioning, progress and adjustment to new job. Worked in continue implementing behavioral activation Processed relationship with food and ways to continue working on this r elationship for long-term weight-loss and sustained changes. Reflected on family dynamics and triggers. Explored ways to set boundaries and become more assertive. Used CBT and CPT tecniques. Assessment/Response: * Mental status: Mild anxious, good functioning. Alert, Oriented X3. * Risk reported/identified: None. PT is very aware of 3 triggers. when bored, stay awake late at night and some family comments. PT was open, active and engaged and responded well to interventions. Presenting Concerns Referral Source [facility]MP Provider. Makenna Hall Reason for referral support for weight gain after bariatric surgery in 2018 Precipitating Event Patient was 163Lbs in 2020. Food/Weight/Diet Expectations of change 02/10/24 -Most recent weight: 205Lbs Target weight: 145Lbs. Assessment & Plan Assessment & Plan (1) Adjustment disorder: Code(s): F43.20 - Adjustment disorder, unspecified Plan We will continue working on self-advocating and assertiveness to manage some triggers around family. Next yohan: 1 month. Telehealth Telehealth Telehealth Platform: Telephone Location of provider rendering services: other Location of patient: address on file Patient Identification confirmed using: Name, : Yes Telehealth method: voice only Patient verbally consented to treatment: Yes Patient verbally consented to billing insurance company: Yes Patient informed of any privacy concerns related to visit: Yes Minutes spent on Phone/Video with Pt.: 45 Coding Level of Care Code Established Pt Tele Psytx 45 mins ([id number]) Patient Type Established Diagnoses Adjustment disorder F43.20 Time Spent (min) 45 Comment Start time: 9:20am, end marvin: 10:05am.
== END 2024-02-10 10:38 | disposition home or self-care (01) ==
LOC: HO.HBST 10:26
PROVIDERS: PCP Internal Medicine; Visit Provider Counselor Mental Health
DX: F43.20 Adjustment disorder, unspecified (principal)
CPT/HCPCS: 90834

== ENCOUNTER 2024-04-20 10:45 | Outpatient (AMB) | payer OTHER, SELFPAY ==
--- NOTE | 2024-04-20 10:50 | A.OFFVIS_ITS ---
VS Expanded 04/20/24 10:51 BP 142/65 H Blood Pressure Location Lt brachial Blood Pressure Position Sitting Pulse 65 Pulse Oximetry 98 Height 5 ft Weight 199 lb 9.6 oz BMI 39.0 Body Fat % 40 Body Fat Mass 798 Fat Free Mass 119.8 Visceral Fat Rating 11.0 Body Water % 42.8 Body Water Mass 85.4 Muscle Mass/Score 113.8 Basal Metabolic Rate/Score 2,709 Intake Visit Reasons: OV PO LSG 12/25/2017 Allergies hydrocodone [From VICODIN] Allergy (Unknown, Verified 04/20/24 10:52) SWELLING, DIFF SWALLOWING morphine [MORPHINE] Allergy (Unknown, Verified 04/20/24 10:52) PASSED OUT Penicillins [PENICILLINS] Allergy (Unknown, Verified 04/20/24 10:52) SWELLING, DIFF SWALLOWING Morphine Allergy (Unknown, Uncoded 04/20/24 10:52) low resp rate Penicillin Allergy (Unknown, Uncoded 04/20/24 10:52) itchhing,hives, swelling of throat vicodine Allergy (Unknown, Uncoded 04/20/24 10:52) itching, hivese, swelling of throat Medication List - Last Reconciled 04/20/24 by JAI Roberts atorvastatin 20 mg PO DAILY cholecalciferol (vitamin D3) 25 mcg PO DAILY cyanocobalamin (vitamin B-12) 1,000 mcg PO DAILY iron,carbonyl-vitamin C 65 mg iron- 125 mg (Vitron-C) 1 tab PO DAILY multivit with min-folic acid 200 mcg tabs PO ondansetron 4 mg PO Q8H PRN pantoprazole 20 mg PO DAILY thiamine HCl (vitamin B1) 100 mg PO DAILY tirzepatide (weight loss) (Zepbound) 2.5 mg subcut QWEEK vitamin A 10,000 units PO DAILY HPI Comments Details: This is a 48 yo female who is s/p LSG 12/25/2017. Weight loss of 10.2lbs since last OV 3 mo ago. No complaints of nausea, emesis, abdominal pain. Reflux occasionally at night when she lies flat. Was changed from Wegovy to Zepbound due to insurance. Tolerating well. She reports she had an abdominal wall hernia noted on a previous CT scan done at [facility]. It is more bothersome now that she has lost some weight. CT report notes a small hiatal hernia, diastasis recti, and two small/tiny herniae around the umbilicus. Present meal plan includes: Premier premade protein shake for breakfast 8am 12pm salad or another shake dinner protein and vegetables better at snacking now, less nighttime eating staying hydrated Exercise routine includes: no current regimen but likes to walk sometimes does home videos Pt reports issues with excess skin of abdomen. Has had to use powder for rashes that have started occurring. These rashes are painful and itchy. Has to clean and wash frequently- gets moisture/sweat in the skin folds which has an u npleasant odor. Activities of daily living are more difficult including bending over/squatting and putting pants on that fit appropriately. As she continues to lose weight Excess skin of legs rubs together and chafes. This is very uncomfortable and painful. This makes walking more difficult/painful also. This is particularly bad in summertime when weather is warmer and she wears shorts. [facility] Medical History Arthritis History of PCOS Obesity Sciatica Hyperlipidemia type II Depression Surgical History Hx of hysterectomy Hx of foot surgery Status post laser cataract surgery of left eye Previous section Hx laparoscopic cholecystectomy S/P laparoscopic sleeve gastrectomy Family History Mother Thyroid disease CHF (congestive heart failure) Father Hypertension High cholesterol Sister Hyperglycemia Sister No problems noted. Son No problems noted. Daughter No problems noted. Social History Alcohol intake: never Patient Tobacco Use Status: Never used Tobacco Physical Exam Vital Signs: Last Vital Signs Pulse 65 04/20/24 10:51 BP 142/65 H 04/20/24 10:51 Pulse Ox 98 04/20/24 10:51 BMI result Body Mass Index 39.0 Assessment & Plan Assessment & Plan (1) Obesity: Code(s): E66.9 - Obesity, unspecified Category: Medical (2) S/P laparoscopic sleeve gastrectomy: Code(s): Z98.84 - Bariatric surgery status Category: Surgical Plan Pt doing well on Zepbound. Her overall meal plan is fine- 2 shakes, one meal. She is not exercising regularly so I encouraged her to resume an exercise regimen. Will recheck vitamin levels, may be able to d/c vitamin D, pt was concerned about rising cholesterol levels and this being a factor. RTC 3 months. I spent a total of 30 minutes reviewing/updating records, examining the patient and counseling the patient on weight management as detailed above. Orders: Orders Zinc Today Z98.84 - Bariatric surgery status Vitamin B12 and Folate Today Z98.84 - Bariatric surgery status Complete Blood Count Auto Diff Today Z98.84 - Bariatric surgery status Vitamin A Today Z98.84 - Bariatric surgery status Vitamin D 25-OH Total Today Z98.84 - Bariatric surgery status Vitamin B1 Today Z98.84 - Bariatric surgery status
[2024-04-20 10:51] VITALS: BP 142/65; PULSE 65; O2SAT 98; BMI 39.0
--- OUTSIDE RECORDS SUMMARY | 2024-04-20 12:53 | XMS_ITS | Encounter Summary ---
Author Organization [facility] Address [address] [place] [address] Care Team Providers Care Gas Main Fitter Name Role Phone Chantel Medley MD Primary Care Provider U Priscila Corona MD Primary Care Provider [phone] Primo Villalobos MD Primary Care Provider Encounter Details Date Type Department Care Team Description 02/06/2022 Hospital Medical Records [address] [place] [id number] Redd Gtz, DPSterling Social History Tobacco Use Types Packs/Day Years Used Date Smoking Tobacco: Never Smokeless Tobacco: Never Alcohol Use Standard Drinks/Week Comments No 0 (1 standard drink = 0.6 oz pur e alcohol) Sex Assigned at Date Recorded Not on file Job Start Date Occupation Industry Not on file Not on file Not on file documented as of this encounter Plan of Treatment Not on file documented as of this encounter Visit Diagnoses Not on filedocumented in this encounter Care Teams Gas Main Fitter Relationship Specialty Start Date End Date Chantel Medley MD PCP - General Internal Medicine 11/10/1703/26 Priscila Caballero MD [address] [place] [address] [phone] PCP - General Internal Medicine 03/27/22 12/10/22 Primo Villalobos MD [address] [place] [address] [phone] PCP - General Internal Medicine 12/11/22 documented as of this encounter
--- OUTSIDE RECORDS SUMMARY | 2024-04-20 12:53 | XMS_ITS | Encounter Summary ---
Author Organization [facility] Address [address] [place] [address] Care Team Providers Care Shuttle Van Driver Name Role Phone Mikey Gómez MD Primary Care Provider [phone] Chantel Medley MD [facility] Primary Care Provider [phone] Primo Villalobos MD Primary Care Provider Encounter Details Date Type Department Care Team Description 11/08/2016 Night Triage Doc Medical Records [address] [place] [id number] Abstract, Provider Social History Tobacco Use Types Packs/Day Years Used Date Smoking Tobacco: Never Smokeless Tobacco: Never Alcohol Use Standard Drinks/Week Comments Yes 0 (1 standard drink = 0.6 oz pur e alcohol) occass Sex Assigned at Date Recorded Not on file Job Start Date Occupation Industry Not on file Not on file Not on file documented as of this encounter Plan of Treatment Not on file documented as of this encounter Visit Diagnoses Not on filedocumented in this encounter Care Teams Shuttle Van Driver Relationship Specialty Start Date End Date Mikey Gómez MD [address] [place] [phone] PCP - General Internal Medicine 09/19/14 11/09/17 Chantel Medley MD [address] [place] [id number] PCP - General Internal Medicine 11/10/17 03/26/22 Priscila Caballero MD [address] [place] [phone] PCP - General Internal Medicine 03/27/22 12/10/22 Primo Villalobos MD [address] [place] [phone] PCP - General Internal Medicine 12/11/22 documented as of this encounter
--- OUTSIDE RECORDS SUMMARY | 2024-04-20 12:53 | XMS_ITS | Encounter Summary ---
Author Organization [facility] Address [address] [place] [address] Care Team Providers Care Evp Name Role Phone Desi Haider MD Primary Care Provider Unavail able Mikey Gómez MD Primary Care Provider [phone] Chantel Medley MD Primary Care Provider U Priscila Coorna MD Primary Care Provider Primo Villalobos MD Primary Care Provider Encounter Details Date Type Department Care Team Description 09/27/2013 Night Triage Doc Medical Records [address] [place] [id number] Abstract, Provider Social History Tobacco Use Types [...] on filedocumented in this encounter Care Teams Evp Relationship Specialty Start Date End Date Desi Haider MD PCP - General Internal Medicine 02/12/13 09/18/14 Mikey Gómez MD [address] [place] [phone] PCP - General Internal Medicine 09/19/14 11/09/17 Chantel Medley MD [address] [place] [phone] PCP - General Internal Medicine 11/10/17 03/26/22 Priscila Caballero MD [address] [place] [phone] PCP - General Internal Medicine 03/27/22 12/10/22 Primo Villalobos MD [address] [place] [id number] PCP - General Internal Medicine 12/11/22 documented as of this encounter
--- OUTSIDE RECORDS SUMMARY | 2024-04-20 12:53 | XMS_ITS | Clinical Summary ---
Author Organization [facility] [address] [place] [address] Address [address] [place] [address] Phone Care Team Providers Care Spinning Mule Tender Name Role Phone Primo Villalobos MD Primary Care Provider Allergies Active Allergy Reactions Criticality Noted Date Comments Cat Dander 08/13/2022 Hydrocodone-Acetaminophen Itching,Rash 11/23/19 10 Morphine 11/18/2017 Penicillin Congestion of the throat 12/05/2023 Medications atorvastatin (LIPITOR) 20 mg tablet Take 1 tablet (20 mg total) by mouth 1 (one) time each day. 11/12/2023 Active cyanocobalamin (Vitamin B-12) 1,000 mcg tablet Take 50 mcg by mouth. 03/28/2021 Active iron fum/vit C/ascorbate sod (IRON PLUS VITAMIN C ORAL) Take by mouth. Active VITAMIN A ORAL Take by mouth. Active cholecalciferol, vitamin D3, (VITAMIN D3 ORAL) Take by mouth. Active pantoprazole (PROTONIX) 20 mg EC tablet Take 1 tablet (20 mg total) by mouth 1 (one) time each day. 90 tablet 01/21/2024 Active Zepbound 2.5 mg/0.5 mL injection Inject 0.5 mL (2.5 mg total) under the skin every 7 (seven) days. 2 mL 03/04/2024 Active Active Problems Problem Noted Date Diagnosed Date Severe obesity 12/05/2023 COVID-19 09/18/2021 Overview (12/05/2023): Home test 09/15/21 HTN (hypertension) 06/13/2016 Chronic low back pain 07/03/2011 Mild dysplasia of cervix 09/11/2010 Hyperlipidemia 05/06/2008 Asthma 2005 Obesity (BMI 30.0-34.9) 2005 Encounters Date Type Department Care Team Description 03/22/2024 1:30 PM EST Office Visit Adult Medicine [address] [phone] Joy Zamora PA Routine general medical examination at a health care facility (Primary Dx); Primary hypertension; Pure hypercholesterolemia; Class 3 severe obesity with serious comorbidity and body mass index (BMI) of 40.0 to 44.9 in adult, unspecified obesity type ([facility]) 03/22/2024 Telephone Adult Medicine [address] [phone] Joy Zamora PA 03/05/2024 Telephone Adult Medicine [address] [phone] Primo Villalobos MD prior authorization 03/04/2024 Telephone Adult Medicine [address] [phone] Primo Villalobos MD medication 03/03/2024 Telephone Adult Medicine [address] [phone] Primo Villalobos MD Med Refill 03/01/2024 Telephone Adult Medicine [address] [phone] Primo Villalobos MD Medication Problem; New Med Request 01/30/2024 Telephone Adult Medicine [address] [phone] Primo Villalobos MD Prior Auth (Wegovy) from Last 3 Months Immunizations Name Administration Dates Next Due Hepatitis B (Pbdndyq-B-Xwyog , Recombivax HB-Adult) 19yo and older 06/15/2008,05/06/2008 Influenza trivalent, 0.5mL, preservative free (Fluarix; FluLaval; Fluzone) ages 6mo and older (Afluria) 3 years and older 12/13/2019 Influenza trivalent, with pr eservative (Fluzone; Afluria) 6mo and older 02/28/2014,03/09/2012,11/05/2010 PPD Test 06/24/2008 Td Tetanus diptheria (Tdvax) 7yo and older 08/10 Td, Unspecified 08/10/2002 Tdap Tetanus diptheria acell ular pertussis (Boostrix; Adacel) 7yo and older 07/03/2011 Surgical History Surgery Date Site/Laterality Comments CHOLECYSTECTOMY TYMPANOSTOMY TUBE PLACEMENT SECTION x 2 OTHER SURGICAL HISTORY 01/08/13 TEMPORAL ARTERY BIOPSY, negative biopsy GASTRIC BYPASS 12/2017 HYSTERECTOMY Medical History Medical History Date Comments Morbid obesity (CMS/HCC) Hyperlipidemia Mild intermittent asthma Other specified personal his tory presenting hazards to health(V15.89) ASCUS pos HPV Other specified personal his tory presenting hazards to health(V15.89) CHONG 1 with HPV changes 02/10 Family History Medical History Relation Name Comments Breast cancer Aunt pat dx 50's do ing well; + mutation carrier No Known Problems Daughter Hypertension Father HLD, A-fib on coumadin, arthritis Coronary artery disease Maternal Grandfather Grandfath erGrandfather Diabetes Maternal Grandfather GrandfatherGrandfath er Hyperlipidemia Maternal Grandfather GrandfatherGrandfa ther Heart attack Maternal Grandmother Hypertension Mother COPD/asthma, cataracts, CHF Breast cancer Other pat cousin d age 31 Alcohol/Drug Paternal Grandfather CABG Paternal Grandmother Grandfather/ Grandmo ther Cataracts Paternal Grandmother Grandfather/ Grandmo ther Glaucoma Paternal Grandmother Grandfather/ Grandmo ther Heart attack Paternal Grandmother Grandfather/ Grandmo ther Hyperlipidemia Paternal Grandmother Grandfather/ Grand mother Stroke Paternal Grandmother Grandfather/ Grandmo ther Hypertension Sister 1 Hypertension Sister 2 low sugars No Known Problems Son Lymphoma Uncle Blindness Neg Hx Macular degeneration Neg Hx Strabismus Neg Hx Relation Name Status Comments Aunt Alive Daughter Alive Father Alive Maternal Grandfather GrandfatherGrandfather ( Age 40s) Maternal Grandmother (Age 70s) Mother Alive Other Paternal Grandfather (Age 70s) Paternal Grandmother Grandfather/ Grandmother (Age 80) Sister 1 Alive Sister 2 Alive Son Alive Uncle Social History Tobacco Use Types Packs/Day Years Used Date Smoking Tobacco: Never Smokeless Tobacco: Never Alcohol Use Standard Drinks/Week Comments No 0 (1 standard drink = 0.6 oz pur e alcohol) Housing Instability Answer Date Recorde d Are you worried that in the next 2 months you may not have stable housing? No 03/22/2024 Food Access & Nutrition Answer Date Rec orded Do you have access to a vari ety of food including fruits and vegetables? Yes 03/22/2024 Access to Healthcare Answer Date Record ed Within the last 3 months, ho w many times did you visit the emergency department for your medical care? 0 03/22/2024 Health Literacy Answer Date Recorded How often do you need to hav e someone help you when you read instructions, pamphlets, or other written material from your doctor or pharmacy? Never 03/22/2024 Caregiver: How often do you need to have someone help you when you read instructions, pamphlets, or other written material from your doctor or pharmacy? Not on file 03/22/2024 Financial Risk Answer Date Recorded How hard is it for you to pa y for the very basics like food, housing, medical care, and air conditioning / heating? Somewhat hard 03/22/2024 Transportation Answer Date Recorded Has the lack of transportati on kept you from meetings, work, or from getting things needed for daily living? No Has the lack of transportati on kept you from medical appointments or from getting medications? No 03/22/2024 Social Isolation Answer Date Recorded How often do you feel lonely or isolated from those around you? Sometimes 03/22/2024 Food Risk Answer Date Recorded Within the past 12 months we worried whether our food would run out before we got money to buy more. Never true 03/22/2024 Within the past 12 months th e food we bought just didn't last and we didn't have money to get more. Never true 03/22/2024 Dependent Care Answer Date Recorded Do you need help finding or paying for care for your loved ones. For example, children's aide or elderly care for an older adult? No 03/22/2024 Education Answer Date Recorded Do you think completing more education or training, like finishing a GED, going to college, or learning a trade, would be helpful for you? No 03/22/2024 Employment and Income Answer Date Recor ded During the last four weeks, have you been actively looking for work? No 03/22/2024 Living Situation Answer Date Recorded What is your living situation? 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 [employer] Not on file Not on fi le Not on file Obstetrics History Last Filed Vital Signs Vital Sign Reading Time Taken Comments Blood Pressure 130/60 03/22/2024 1:17 PM EST Pulse 58 03/22/2024 1:17 PM EST Temperature 36.8 ??C (98.2 ??F) 03/22/2024 1:17 PM ES T Respiratory Rate 16 03/22/2024 1:17 PM EST Oxygen Saturation - - Inhaled Oxygen Concentration - - Weight 93.9 kg (207 lb) 03/22/2024 1:17 PM EST Height 149.9 cm (4' 11 ) 03/22/2024 1:17 PM EST Body Mass Index 41.81 03/22/2024 1:17 PM EST Plan of Treatment Upcoming Encounters Date Type Department Care Team (Late st Contact Info) Description 05/03/2024 9:30 AM EDT Office Visit Adult Medicine [facility] - [address] [phone] Joy Zamora PA [address] [place], [place] 11/18/2024 2:00 PM EDT Appointment Radiology Department - [address] [phone] Health Maintenance Due Date Last Done Comments Hepatitis B Vaccines (3 of 3 - 19+ 3-dose series) 11/06/2008 06/15/2008, 05/06/2008 Colorectal Cancer Screening: Colonoscopy 02/02/2022 Cervical Cancer Screening: HPV 03/09/2025 03/09/2020 DTaP,Tdap,and Td Vaccines (4 - Td or Tdap) 03/22/2025 07/03/2011, 08/10/2002, 08/10/2002 Postponed from 07/02/2021 (Patient Refused) Depression Screening 03/22/2025 03/22/2024, 11/12/19 24 Social Influencers of Health Screening 03/22/2025 03/22/2024 Hypertension/CHF/CAD Annual BMP Blood Test 04/05/2025 04/05/2024, 07/31/2022 Breast Cancer Screening 11/11/2025 11/12/19 24, 11/12/2023, 11/07/2022, Additional history exists Cholesterol Screening (Lipid Panel) 04/05/2029 04/05/2024, 12/01/2019 HIV Screening Completed 12/01/2019 Hepatitis C Screening Completed 12/01/2019 Influenza Vaccine Discontinued 12/13/2019, , 03/09/2012, Additional history exists COVID-19 Vaccine Discontinued HIB Vaccines Aged Out No longer eligi ble based on patient's age to complete this topic HPV Vaccines Aged Out No longer eligi ble based on patient's age to complete this topic Hepatitis A Vaccines Aged Out No long er eligible based on patient's age to complete this topic IPV Vaccines Aged Out No longer eligi ble based on patient's age to complete this topic MMR Vaccines Aged Out No longer eligi ble based on patient's age to complete this topic Meningococcal ACWY Vaccine Aged Out N o longer eligible based on patient's age to complete this topic Meningococcal B Vacine Aged Out No lo nger eligible based on patient's age to complete this topic Pneumococcal Vaccine: Pediatrics (0 to 5 Years) and At-Risk Patients (6 to 64 Years) Discontinued RSV Immunization Patients Under 20 months Aged Out No longer eligible based on patient's age to complete this topic Varicella Vaccines Aged Out No longer eligible based on patient's age to complete this topic Procedures Procedure Name Priority Date/Time Associated Diagnosis Comments COMPREHENSIVE METABOLIC PANEL Routine 04/05/2024 9:47 AM EST Pure hypercholesterolemia LIPID PANEL WITH REFLEX TO DIRECT LDL Routine 04/05/2024 9:47 AM EST Pure hypercholesterolemia SCREENING MAMMOGRAPHY BI 2-VIEW BREAST INC CAD Routine 11/12/2023 1:43 PM EDT Encounter for screening mammogram for malignant neoplasm of breast DEPRESSION SCREENING Routine 11/12/2023 HPV Routine 03/09/2020 HEPATITIS C SCREENING Routine 12/01/2019 HIV SCREENING Routine 12/01/2019 from Last 3 Months or Most Recently Relevant to Health Maintenance Results * (ABNORMAL) Lipid panel with reflex to direct LDL (04/05/2024 9:47 AM EST) Cholesterol 225(H) 0 - 200 mg/dL LAB CHEMISTRY METHOD 04/05/2024 3:07 PM [facility] Triglycerides 100 0 - 150 mg/dL LAB CHEMISTRY METHOD 04/05/2024 3:07 PM [facility] HDL 57 >=40 mg/dL LAB CHEMISTRY METHOD 04/05/2024 3:07 PM [facility] LDL Calculated 148(H) 0 - 100 mg/dL LAB CHEMISTRY METHOD 04/05/2024 3:07 PM [facility] VLDL Cholesterol Blake 20 mg/dL LAB CHEMISTRY METHOD 04/05/2024 3:07 PM [facility] Non HDL Chol. (LDL+VLDL) 168(H) <145 mg/dL LAB CHEMISTRY METHOD 04/05/2024 3:07 PM [facility] Chol/HDL Ratio 3.9 0.0 - 4.4 LAB CHEMISTRY METHOD 04/05/2024 3:07 PM [facility] Blood Venous blood specimen / Unknown Venipuncture / Unknown 04/05/2024 9:47 AM EST 04/05/2024 9:47 AM EST us Joy Noah [facility] LAB BLOOD ORDERABLES Final Resul t [facility] [address] [place] [address], [place] [phone] * (ABNORMAL) Comprehensive metabolic panel (04/05/2024 9:47 AM EST) Sodium 138 133 - 145 mmol/L LAB CHEMISTRY METHOD 04/05/2024 3:07 PM [facility] Potassium 4.8 3.5 - 5.5 mmol/L LAB CHEMISTRY METHOD 04/05/2024 3:07 PM [facility] Chloride 103 96 - 110 mmol/L LAB CHEMISTRY METHOD 04/05/2024 3:07 PM [facility] CO2 32 21 - 32 mmol/L LAB CHEMISTRY METHOD 04/05/2024 3:07 PM [facility] Anion Gap 3 3 - 11 LAB CHEMISTRY METHOD 04/05/2024 3:07 PM [facility] Glucose 84 70 - 100 mg/dL LAB CHEMISTRY METHOD 04/05/2024 3:07 PM [facility] BUN 11 5 - 25 mg/dL LAB CHEMISTRY METHOD 04/05/2024 3:07 PM [facility] Creatinine 0.79 0.50 - 1.10 mg/dL LAB CHEMISTRY METHOD 04/05/2024 3:07 PM [facility] eGFR 94 >=60 mL/min/1. 73m2 LAB CHEMISTRY METHOD 04/05/2024 3:07 PM [facility] Comment:Calculation based on the??Chronic Kidney Disease Epidemiology Collaboration (CKD-EPI) equation refit??without adjustment for race. BUN/Creatinine Ratio 13.9 LAB CHEMISTRY METHOD 04/05/2024 3:07 PM [facility] Calcium 9.5 8.5 - 10.5 mg/dL LAB CHEMISTRY METHOD 04/05/2024 3:07 PM [facility] AST (SGOT) 34 10 - 42 unit/L LAB CHEMISTRY METHOD 04/05/2024 3:07 PM [facility] ALT (SGPT) 70(H) 10 - 60 unit/L LAB CHEMISTRY METHOD 04/05/2024 3:07 PM [facility] Alkaline Phosphatase 186(H) 42 - 121 unit/L LAB CHEMISTRY METHOD 04/05/2024 3:07 PM [facility] Total Protein 7.5 6.0 - 8.0 g/dL LAB CHEMISTRY METHOD 04/05/2024 3:07 PM [facility] Albumin 4.1 3.2 - 5.0 g/dL LAB CHEMISTRY METHOD 04/05/2024 3:07 PM [facility] Total Bilirubin 0.6 0.0 - 1.4 mg/dL LAB CHEMISTRY METHOD 04/05/2024 3:07 PM [facility] Blood Venous blood specimen / Unknown Venipuncture / Unknown 04/05/2024 9:47 AM EST 04/05/2024 9:47 AM EST us Joy Noah PA LAB BLOOD ORDERABLES Final Resul t [facility] [address] [place] [address], * SCREENING MAMMOGRAPHY BI 2-VIEW BREAST INC CAD (11/12/2023 1:43 PM EDT) Anatomical Region Laterality Modality Radiographic Rachna ging 11/07/2022 3:16 PM EDT Narrative 11/13/2023 7:59 AM EDT This is a summary report. The complete report is available in the patient's medical record. If you cannot access the medical record, please contact the sending organization for a detailed fax or copy. Exam: Screening mammogram Findings: Digital bilateral full-field screening mammography is performed with tomosynthesis and interpreted with the aid of computer-aided detection. ??Comparison is made with 11/07/2022 and 01/08/2019. ??Limitations in patient positioning due to body habitus and images obtained are the best possible. Breast parenchyma is composed of scattered fibroglandular densities. ??No new suspicious mass, architectural distortion, or suspicious calcifications. Impression: No mammographic evidence of malignancy. BI-RADS 1 - negative [address] [address] Procedure Note Bianca Chaparro MD - 12/10/2023 This is a summary report. The complete report is available in thepatient's medical record. If you cannot access the medical record, pleasecontact the sending organization for a detailed fax or copy. Exam: Screening mammogram Findings: Digital bilateral full-field screening mammography is performedwith tomosynthesis and interpreted with the aid of computer-aideddetection. Comparison is made with 11/07/2022 and 01/08/2019. Limitationsin patient positioning due to body habitus and images obtained are thebest possible. Breast parenchyma is composed of scattered fibroglandular densities. Nonew suspicious mass, architectural distortion, or suspiciouscalcifications. Impression: No mammographic evidence of malignancy. BI-RADS 1 - negative [address] [address] Dyan Miller DO IMG XR PROCEDURES Final Result * Depression Screening (11/12/2023) Pathologist [facility] Depression Screening Abstracted [facility] Provider HEALTH MAINTENANCE Final Result * Cervical Cancer Screening: HPV (03/09/2020) [facility] Cervical Cancer Screening: HPV Abstracted ,Negative [facility] Provider HEALTH MAINTENANCE Final Result * HIV Screening (12/01/2019) Pathologist [facility] HIV Screening Abstracted [facility] Provider HEALTH MAINTENANCE Final Result * Hepatitis C Screening (12/01/2019) Hepatitis C Screening Abstracted us Historical Provider HEALTH MAINTENANCE Final Result from Last 3 Months or Most Recently Relevant to Health Maintenance Insurance [facility] Care Teams Spinning Mule Tender Relationship Specialty Start Date End Date Primo Villalobos MD [address] [place] [address] PCP - General 12/11/22
--- OUTSIDE RECORDS SUMMARY | 2024-04-20 12:53 | XMS_ITS | Encounter Summary ---
Author Organization [facility] Address [address] [place] [address] Care Team Providers Care Mileage Clerk Name Role Phone Priscila Caballero MD Primary Care Provider [phone] Primo Villalobos MD Primary Care Provider Encounter Details Date Type Department Care Team Description 04/03/2022 Orders Only Medical Records [address] [place] [id number] Dyan Miller DO Social History Tobacco Use Types Packs/Day Years Used Date Smoking Tobacco: Never Smokeless Tobacco: Never Alcohol Use Standard Drinks/Week Comments No 0 (1 standard drink = 0.6 oz pur e alcohol) Sex Assigned at Date Recorded Not on file Job Start Date Occupation Industry Not on file Not on file Not on file COVID-19 Exposure Response Date Recorded In the last 10 days, have yo u been in contact with someone who was confirmed or suspected to have Coronavirus/COVID-19? Unable to assess 04/05/2022 12:20 PM EST documented as of this encounter Plan of Treatment Not on file documented as of this encounter Procedures Procedure Name Priority Date/Time Associated Diagnosis Comments OUTSIDE PATHOLOGY Routine 04/01/2022 documented in this encounter Results * OUTSIDE PATHOLOGY (04/01/2022) Dyan Miller DO OUTSIDE LAB documented in this encounter Visit Diagnoses Not on filedocumented in this encounter Care Teams Mileage Clerk Relationship Specialty Start Date End Date Priscila Caballero MD [address] [place] [id number] PCP - General Internal Medicine 03/27/22 12/10/22 Primo Villalobos MD [address] [place] [id number] PCP - General Internal Medicine 12/11/22 documented as of this encounter
--- OUTSIDE RECORDS SUMMARY | 2024-04-20 12:53 | XMS_ITS | Encounter Summary ---
Author Organization [facility] Address [address] [place] [address] Care Team Providers Care Hide Splitter Name Role Phone Priscila Caballero MD Primary Care Provider [phone] Primo Villalobos MD Primary Care Provider Encounter Details Date Type Department Care Team Description 04/30/2022 SCAN Medical Records [address] [place] [id number] Abstract, Provider Social History Tobacco Use Types [...] was confirmed or suspected to have Coronavirus/COVID-19? No / Unsure 05/02/2022 12:59 PM EST documented as of this encounter Plan of Treatment Not on file documented as of this encounter Visit Diagnoses Not on filedocumented in this encounter Care Teams Hide Splitter Relationship Specialty Start Date End Date Priscila Caballero MD [address] [place] [address] [phone] PCP - General Internal Medicine 03/27/22 12/10/22 Primo Villalobos MD [address] [place] [phone] PCP - General Internal Medicine 12/11/22 documented as of this encounter
--- OUTSIDE RECORDS SUMMARY | 2024-04-20 12:54 | XMS_ITS | Encounter Summary ---
Author Organization [facility] Address [address] [place] [address] Care Team Providers Care Material Flow Engineer Name Role Phone Mikey Gómez MD Primary Care Provider [phone] Chantel Medley MD Primary Care Provider U Priscila Corona MD Primary Care Provider [phone] Primo Villalobos MD Primary Care Provider Reason for Visit * Reason Onset Date Comments REFERRAL 03/17/2017 Encounter Details Date Type Department Care Team Description 03/17/2017 Telephone Radiology - [address] [address] Carlos Moreno MD REFERRAL Social History Tobacco Use Types Packs/Day Years Used Date Smoking Tobacco: Never Smokeless Tobacco: Never Alcohol Use Standard Drinks/Week Comments No 0 (1 standard drink = 0.6 oz pur e alcohol) occass Sex Assigned at Date Recorded Not on file Job Start Date Occupation Industry Not on file Not on file Not on file documented as of this encounter Miscellaneous Notes * Telephone Encounter - Valorie Walter - 03/17/2017 10:04 AM EST Pt is calling to rebook her sonchava that she no showed 02/04/17, please put in new order because it was removed due to to many unsuccessful attempts to reach pt. Thank you documented in this encounter Plan of Treatment Not on file documented as of this encounter Visit Diagnoses Not on filedocumented in this encounter Care Teams Material Flow Engineer Relationship Specialty Start Date End Date Mikey Gómez MD [address] [place] [id number] PCP - General Internal Medicine 09/19/14 11/09/17 Chantel Medley MD [address] [place] [id number] PCP - General Internal Medicine 11/10/17 03/26/22 Priscila Caballero MD [address] [place] [id number] PCP - General Internal Medicine 03/27/22 12/10/22 Primo Villalobos MD [address] [place] [id number] PCP - General Internal Medicine 12/11/22 documented as of this encounter
--- OUTSIDE RECORDS SUMMARY | 2024-04-20 12:54 | XMS_ITS | Encounter Summary ---
Author Organization [facility] Address [address] [place] [address] Care Team Providers Care Box Storage Worker Name Role Phone Chantel Medley MD Primary Care Provider U Priscila Corona MD Primary Care Provider [phone] Primo Villalobos MD Primary Care Provider Encounter Details Date Type Department Care Team Description 03/12/2021 Orders Only Adult Medicine [facility] [address] [place] [address] Chantel Medley MD Preoperative examination; Screening for deficiency anemia Social History Tobacco Use Types Packs/Day Years [...] on file documented as of this encounter Results * (ABNORMAL) BASIC METABOLIC PANEL (04/03/2021 3:06 PM EST) GLUCOSE 161(H) 70 - 100 mg/dL 04/03/2021 7:03 PM EST [facility] Comment:Reference range appl icable to fasting specimens only Blood Urea Nitrogen 14 5 - 25 mg/dL 04/03/2021 7:03 PM EST [facility] CREAT 0.80 0.5 - 1.1 mg/dL 04/03/2021 7:03 PM EST [facility] GLOMERULAR FILTRATION RATE > 60 04/03/2021 7:03 PM EST [facility] Comment: If patient is -[place], multiply result by 1.21 Chronic Kidney Disease: < 60 ml/min/1.73 square meters Kidney Failure: < 15 ml/min/1.73 square meters NA 138 135 - 145 mEq/L 04/03/2021 7:03 PM EST [facility] K 3.9 3.5 - 5.5 mmol/L 04/03/2021 7:03 PM EST [facility] CL 104 96 - 110 mmol/L 04/03/2021 7:03 PM EST [facility] CARBON DIOXIDE (CO2) 28 21 - 32 mmol/L 04/03/2021 7:03 PM EST [facility] ANION GAP 6 3 - 11 04/03/2021 7:03 PM EST [facility] CALCIUM 8.9 8.5 - 10.5 mg/dL 04/03/2021 7:03 PM EST [facility] 04/03/2021 3:06 PM EST 04/03/2021 3:06 PM EST Narrative [facility] - 04/03/2021 7:03 PM EST Release to patient->Immediate Chantel Rai MD LAB [facility] * CBC (AUTO DIFF PLATELET) (04/03/2021 3:06 PM EST) Pathologist [facility] [place] WHITE BLOOD COUNT 7.5 4.8 - 10.8 x10-3/uL 04/03/2021 6:48 PM EST [facility] RED BLOOD COUNT 4.8 3.8 - 4.8 x10-6/uL 04/03/2021 6:48 PM EST [facility] Hemoglobin 13.8 11.5 - 16.0 g/dL 04/03/2021 6:48 PM EST [facility] Hematocrit 42.9 35 - 47 % 04/03/2021 6:48 PM EST [facility] MEAN CORPUSCULAR VOLUME 89.9 79 - 98 fL 04/03/2021 6:48 PM EST [facility] MEAN CORPUSCULAR HEMOGLOBIN 28.9 27 - 32 pg 04/03/2021 6:48 PM EST [facility] MEAN CORPUSCULAR HGB CONC 32.2 32 - 37 g/dL 04/03/2021 6:48 PM EST [facility] RED CELL DISTRIBUTION WIDTH 12.3 11 - 15 % 04/03/2021 6:48 PM EST [facility] PLT COUNT 285 130 - 400 x10-3/uL 04/03/2021 6:48 PM EST [facility] MEAN PLATELET VOLUME 10.0 7 - 11 fL 04/03/2021 6:48 PM EST [facility] NRBC % AUTO 0.0 <1 % 04/03/2021 6:48 PM EST [facility] NEUTROPHILS % 69.6 % 04/03/2021 6:48 PM EST [facility] LYMPH % 22.8 % 04/03/2021 6:48 PM EST [facility] MONO % 5.1 % 04/03/2021 6:48 PM EST [facility] EOS % 1.7 % 04/03/2021 6:48 PM EST [facility] BASO % 0.5 % 04/03/2021 6:48 PM EST [facility] IMMATURE GRANULOCYTES % 0.3 % 04/03/2021 6:48 PM EST [facility] NRBC # AUTO 0.00 <0.1 x10-3/uL 04/03/2021 6:48 PM EST [facility] NEUT # 5.19 1.5 - 7.0 x10-3/uL 04/03/2021 6:48 PM EST [facility] LYMPH # 1.70 1 - 5.0 x10-3/uL 04/03/2021 6:48 PM EST [facility] MONO # 0.38 0.2 - 1.0 x10-3/uL 04/03/2021 6:48 PM EST [facility] EOS # 0.13 0 - 0.5 x10-3/uL 04/03/2021 6:48 PM EST [facility] BASO # 0.04 0 - 0.2 x10-3/uL 04/03/2021 6:48 PM EST [facility] IMMATURE GRANULOCYTES # 0.02 0 - 0.03 x10-3/uL 04/03/2021 6:48 PM EST [facility] 04/03/2021 3:06 PM EST 04/03/2021 3:06 PM EST Narrative [facility] - 04/03/2021 6:48 PM EST Release to patient->Immediate Chantel Rai MD LAB [facility] documented in this encounter Visit Diagnoses Diagnosis Preoperative examination Preoperative examination, unspecified Screening for deficiency anemia Screening for other and unspecified deficiency anemia Preoperative examination Preoperative examination, unspecified Screening for deficiency anemia Screening for other and unspecified deficiency anemia documented in this encounter Care Teams Box Storage Worker Relationship Specialty Start Date End Date Chantel Medley MD PCP - General Internal Medicine 11/10/1703/26 Priscila Caballero MD [address] [place] [id number] PCP - General Internal Medicine 03/27/22 12/10/22 Primo Villalobos MD [address] [place] [phone] PCP - General Internal Medicine 12/11/22 documented as of this encounter
--- OUTSIDE RECORDS SUMMARY | 2024-04-20 12:54 | XMS_ITS | Encounter Summary ---
Author Organization [facility] Address [address] [place] [address] Care Team Providers Care Automotive Fuel Systems Converter Name Role Phone Primo Villalobos MD Primary Care Provider Reason for Visit * Reason Onset Date Comments medication 03/04/2024 Encounter Details Date Type Department Care Team (Late st Contact Info) Description 03/04/2024 Telephone Adult Medicine [facility] [address] [place] [address] Primo Villalobos MD [address] [place] [address] medication Social History Tobacco Use Types Packs/Day Years [...] care for your loved ones. For example, child welfare consultant or elderly care for an older adult? [...] on file Sexual Orientation Not on file documented as of this encounter Last Filed Vital Signs Vital Sign Reading Time Taken Comments Blood Pressure 123/76 03/15/2024 7:00 AM EST Pulse 64 03/15/2024 7:00 AM EST Temperature - - Respiratory Rate 16 03/15/2024 7:00 AM EST Oxygen Saturation - - Inhaled Oxygen Concentration - - Weight 91.9 kg (202 lb 9.6 oz) 03/15/2024 7:00 A M EST Height 149.9 cm (4' 11 ) 03/15/2024 7:00 AM EST Body Mass Index 40.92 03/15/2024 7:00 AM EST documented in this encounter Progress Notes * JAI Garay - 03/22/2024 1:51 PM EST I saw patient in the office today. What is the update on the prior auth for Zepbound 2.5 mg? * Nataliia Hall MA - 03/17/2024 9:16 AM EST Prior authorization for the zepbound was completed today on the phone with Wendy Koch class 1 obesity [facility] * Nataliia Hall MA - 03/15/2024 12:29 PM EST [facility] is closed for the holiday today . Will need to call on Friday * Chetna Quiroz MA - 03/15/2024 8:45 AM EST Pt presented to the office for her vitals BP 123/76 P 64 R 16 Temp 98.7 Wt. 202.6lb Ht 59 inches BMI 40.92 * Primo Villalobos MD - 03/12/2024 12:05 PM EST Spoke with the patient over the phone. Patient will come on March 15 to have her weight, vital signs done. * Nataliia Hall MA - 03/12/2024 11:35 AM EST The pt does not have a weight and bmi within the last 90 days. I need this documentation to be able to [facility]. Thank you Please reply back to [facility] (Prior Auth [place]) Nataliia Reed [facility] Prior Authorization Ext [id number] * Primo Villalobos MD - 03/11/2024 4:08 PM EST Can I know what is the status of the prior Auth for Zepbound for this patient? * Naomi Bruno MA - 03/11/2024 2:09 PM EST Please advise * Nataliia Raymundo - 03/04/2024 1:52 PM EST Patient states she was on Wegovy 1mg and her insurance will no longer cover it. States they will cover a script for Zepbound which Dr Villalobos to her pharmacy. States the dosage on Zepbound 2.5 mg/0.5 mL injection Sig: Inject 0.5 mL (2.5 mg total) under the skin every 7 (seven) days. She would like to know if the Zepbound dosage and insturctions are an increase from her last medication, stating that she was told this refill should be an increase from her last. Patient would like a call back at [phone], she does not want a [employer] Private message sent. documented in this encounter Plan of Treatment Upcoming Encounters Date Type Department Care Team (Late st Contact Info) Description 05/03/2024 9:30 AM EDT Office Visit Adult [address] [phone] Joy Zamora PA [address], [place] 11/18/2024 2:00 PM EDT Appointment Radiology Department - [address] [phone] documented as of this encounter Visit Diagnoses Not on filedocumented in this encounter Additional Health Concerns Assessment Noted Time PHQ-9 Depression Total Score: 0 02/12/20 24 8:09 AM EST documented as of this encounter Care Teams Automotive Fuel Systems Converter Relationship Specialty Start Date End Date Primo Villalobos MD [address] [place] [address] PCP - General 12/11/22 documented as of this encounter
--- OUTSIDE RECORDS SUMMARY | 2024-04-20 12:54 | XMS_ITS | Encounter Summary ---
Author Organization [facility] Address [address] [place] [address] Care Team Providers Care Team Lead Name Role Phone Primo Villalobos MD Primary Care Provider Reason for Visit * Reason Onset Date Comments prior authorization 03/05/2024 Encounter Details Date Type Department Care Team (Late st Contact Info) Description 03/05/2024 Telephone Adult Medicine [facility] [address] [place] [address] Primo Villalobos MD [address] [place] [address] prior authorization Social History Tobacco Use Types Packs/Day Years [...] care for your loved ones. For example, childcare director or elderly care for an older adult? [...] on file documented as of this encounter Progress Notes * Nataliia Hall MA - 03/12/2024 11:37 AM EST This is a duplicate request. See open encounter. * Amercia Balderas - 03/05/2024 4:29 PM EST Prior Authorization for Medication-do not complete and send this encounter unless you have the fax from the pharmacy. Is this a Cover My Meds request: [place] of Medication Zepbound Dose of Medication 2.5mg/0.5mL What is the RX # from the faxed refill? N/a How does patient take this med? Inject 0.5 mL (2.5 mg total) under the skin every 7 (seven) days What Pharmacy did the fax come from: n/a Pharmacy fax #: [phone] [employer] Information from fax: What Prescription Plan does the patient have? N/a BIN/PCN if applicable: n/a Cardholder ID: n/a Person Code: n/a Relationship Code: n/a Help desk phone: n/a documented in this encounter Plan of Treatment Upcoming Encounters Date Type Department Care Team (Late st Contact Info) Description 05/03/2024 9:30 AM EDT Office Visit Adult Medicine [address] [phone] Joy Zamora PA [address] [place] [address] 11/18/2024 2:00 PM EDT Appointment Radiology Department - [address] [phone] documented as of this encounter Visit Diagnoses Not on filedocumented in this encounter Additional Health Concerns Assessment Noted Time PHQ-9 Depression Total Score: 0 02/12/20 24 8:09 AM EST documented as of this encounter Care Teams Team Lead Relationship Specialty Start Date End Date Primo Villalobos MD [address] [place] [address] PCP - General 12/11/22 documented as of this encounter
--- OUTSIDE RECORDS SUMMARY | 2024-04-20 12:54 | XMS_ITS | Encounter Summary ---
Author Organization [facility] Address [address] [place] [address] Care Team Providers Care Paper Bundler Name Role Phone Yoana Carrion MD Primary Care Provider Unav Desi Mesa MD Primary Care Provider Unavail able Mikey Gómez MD Primary Care Provider [phone] Chantel Medley MD Primary Care Provider U Priscila Corona MD Primary Care Provider [phone] Primo Villalobos MD Primary Care Provider Encounter Details Date Type Department Care Team Description 01/08/2013 [facility] Medical Records [address] [place] [phone] Carrol Lee MD Social History Tobacco Use Types Packs/Day Years [...] on filedocumented in this encounter Care Teams Paper Bundler Relationship Specialty Start Date End Date Yoana Carrion MD PCP - General 09/16/1996 02/11/13 Desi Haider MD PCP - General Internal Medicine 02/12/13 09/18/14 Mikey Gómez MD [address] [place] [id number] PCP - General Internal Medicine 09/19/14 11/09/17 Chantel Medley MD [address] [place] [phone] PCP - General Internal Medicine 11/10/17 03/26/22 Priscila Caballero MD [address] [place] [id number] PCP - General Internal Medicine 03/27/22 12/10/22 Primo Villalobos MD [address] [place] [address] [phone] PCP - General Internal Medicine 12/11/22 documented as of this encounter
--- OUTSIDE RECORDS SUMMARY | 2024-04-20 12:54 | XMS_ITS | Encounter Summary ---
Author Organization [facility] Address [address] [place] [address] Care Team Providers Care Director Of Market Intelligence Name Role Phone Chantel Medley MD Primary Care Provider U Priscila Corona MD Primary Care Provider [phone] Primo Villalobos MD Primary Care Provider Encounter Details Date Type Department Care Team Description 12/30/2018 Orders Only Medical Records [address] [place] [id number] Dyan Miller DO Social History Tobacco Use [...] Date/Time Associated Diagnosis Comments OUTSIDE PATHOLOGY Routine 12/28/2018 documented in this encounter Results * OUTSIDE PATHOLOGY (12/28/2018) Dyan Miller DO OUTSIDE LAB documented in this encounter Visit Diagnoses Not on filedocumented in this encounter Care Teams Director Of Market Intelligence Relationship Specialty Start Date End Date Chantel Medley MD PCP - General Internal Medicine 11/10/1703/26 Priscila Caballero MD [address] [place] [address] [phone] PCP - General Internal Medicine 03/27/22 12/10/22 Primo Villalobos MD [address] [place] [id number] PCP - General Internal Medicine 12/11/22 documented as of this encounter
--- OUTSIDE RECORDS SUMMARY | 2024-04-20 12:54 | XMS_ITS | Encounter Summary ---
Author Organization [facility] Address [address] [place] [address] Care Team Providers Care Blender Helper Name Role Phone Primo Villalobos MD Primary Care Provider Reason for Visit * Reason Comments Annual Exam Encounter Details Date Type Department Care Team (Late st Contact Info) Description 03/22/2024 1:30 PM EST Office Visit Adult Medicine [address] [phone] Joy Zamora PA [address], [place] Routine general medical examination at a health care facility (Primary Dx); Primary hypertension; Pure hypercholesterolemia ; Class 3 severe obesity with serious comorbidity and body mass index (BMI) of 40.0 to 44.9 in adult, unspecified obesity type (CMS/HCC) Social History Tobacco Use Types Packs/Day Years [...] care for your loved ones. For example, director of early childhood education or elderly care for an older adult? 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 old female. HPI: Patient presents today for annual physical exam. She lives at home with her partner. 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 She is UTD with eye, dental and DISABILITY AIDE exams. She declines flu, covid-19, Tdap, prevnar vaccines today. She had a colonoscopy done 2 years ago which was normal, will request from [facility]. Mammogram up-to-date. She has been eating an overall healthy diet, has not been exercising. She was previously onWegovy which helped her lose weight, unfortunately her insurance formulary changed. She has not rece ived Zepbound yet, patient states that she is waiting on prior authorization. ROS: GENERAL: No malaise, significant weight loss or fever HEENT: No changes in hearing or vision, nose bleeds or other nasal problems NECK: No lumps, goiter, pain or significant neck swelling RESPIRATORY: No cough, wheezing or shortness of breath CARDIOVASCULAR: No chest pain, leg swelling or palpitations BREAST: No lumps, discharge, pain or change in skin GI: No abdominal discomfort, blood in stools or black stools : No dysuria, frequency or incontinence DISABILITY AIDE: No abnormal vaginal bleeding or abnormal vaginal discharge MUSCULOSKELETAL: No joint pain or swelling, back pain, or muscle pain SKIN: No lesions, rash or itching PSYCH: No sleep disturbance, mood disorder or recent psychosocial stressors HEMATOLOGY/LYMPHOLOGY: No prolonged bleeding, easy bruisability or swollen nodes ENDOCRINE: No cold or heat intolerance, polyuria, polydipsia or goiter NEURO: No persistent headache, syncope, seizures, weakness or numbness PAST MEDICAL HISTORY: Patient Active Problem List Diagnosis Date Noted Severe obesity (CMS/HCC) 12/05/2023 COVID-19 09/18/2021 HTN (hypertension) 06/13/2016 Chronic low back pain 07/03/2011 Mild dysplasia of cervix 09/11/2010 Hyperlipidemia 05/06/2008 Asthma 2005 Obesity (BMI 30.0-34.9) 2005 SOCIAL HISTORY: Social History Tobacco Use Smoking status: Never Smokeless tobacco: Never Substance Use Topics Alcohol use: No FAMILY HISTORY: Family Status Relation Name Status Mother Alive Father Alive Sister Alive Sister Alive Daughter Alive Son Alive MGM at age 70s MGF GrandfatherGrandfather at age 40s PGM Grandfather/ Grandmother at age 80 PGF at age 70s Aunt Alive Uncle Other Neg Hx (Not Specified) No partnership data on file Family History Problem Relation Name Age of Onset Hypertension Mother COPD/asthma, cataracts, CHF Hypertension Father HLD, A-fib on coumadin, arthritis Hypertension Sister Hypertension Sister low sugars No Known Problems Daughter No Known Problems Son Heart attack Maternal Grandmother Diabetes Maternal Grandfather GrandfatherGrandfather Hyperlipidemia Maternal Grandfather GrandfatherGrandfather Coronary artery disease Maternal Grandfather GrandfatherGrandfather CABG Paternal Grandmother Grandfather/ Grandmother Hyperlipidemia Paternal Grandmother Grandfather/ Grandmother Glaucoma Paternal Grandmother Grandfather/ Grandmother Cataracts Paternal Grandmother Grandfather/ Grandmother Heart attack Paternal Grandmother Grandfather/ Grandmother Stroke Paternal Grandmother Grandfather/ Grandmother Alcohol/Drug Paternal Grandfather Breast cancer Aunt pat dx 50's doing well; + mutation carrier Lymphoma Uncle Breast cancer Other pat cousin age 31 Blindness Neg Hx Macular degeneration Neg Hx Strabismus Neg Hx ACTIVE MEDICATIONS: Outpatient Medications Marked as Taking for the 03/22/24 encounter (Office Visit) with JAI Garay Medication Sig Dispense Refill atorvastatin (LIPITOR) 20 mg tablet Take 1 tablet (20 mg total) by mouth 1 (one) time each day. cholecalciferol, vitamin D3, (VITAMIN D3 ORAL) Take by mouth. cyanocobalamin (Vitamin B-12) 1,000 mcg tablet Take 50 mcg by mouth. iron fum/vit C/ascorbate sod (IRON PLUS VITAMIN C ORAL) Take by mouth. pantoprazole (PROTONIX) 20 mg EC tablet Take 1 tablet (20 mg total) by mouth 1 (one) time each day.90 tablet 0 VITAMIN A ORAL Take by mouth. ALLERGIES: Cat dander, Hydrocodone-acetaminophen, Morphine, and Penicillin PHYSICAL EXAM: Blood pressure 130/60, pulse 58, temperature 36.8 ??C (98.2 ??F), temperature source Temporal, resp. rate 16, height 1.499 m (59 ), weight 93.9 kg (207 lb). Body mass index is 41.81 kg/m??. BMI is greater than 25.0 (above the normal range) - see Plan APPEARANCE: Alert and in no acute distress EYES: PERRLA, conjunctiva and sclera normal EARS: External ears normal. Canals clear. TMs normal NOSE/SINUS: Nares normal. Septum midline. Mucosa normal. No drainage or sinus tenderness THROAT: No erythema or exudates NECK: Neck supple, no adenopathy, thyroid symmetric and of normal size HEART: RRR with normal S1 and S2 ,no murmurs, no gallops, no JVD appreciated LUNG: Clear to auscultation BREAST (FEMALE): Deferred/declined ABDOMEN: Bowel sounds normoactive, no bruits, soft, non-tender, without organomegaly or palpable masses BACK: No pain to palpation with good flexion and extension EXTREMITIES: Extremities warm and well perfused without clubbing, cyanosis, or edema NEURO: Awake, alert and oriented x 3 with symmetrical reflexes SKIN: Skin color, texture, turgor normal. No rashes or lesions LABS/IMAGING: Lab Results Component Value Date CHOL 248 (A) 12/01/2019 LDL 165 (A) 12/01/2019 HDL 64 12/01/2019 TRIG 97 12/01/2019 IMPRESSION: 1. Routine general medical examination at a health care facility 2. Primary hypertension 3. Pure hypercholesterolemia 4. Class 3 severe obesity with serious comorbidity and body mass index (BMI) of 40.0 to 44.9 in adult, unspecified obesity type (CMS/HCC) PLAN: 1. Health maintenance: The patient presented for an evaluation of general health. As part of this visit, we reviewed the following issues, which are considered an essential part of preventative health in this age group: - Breast cancer screening for high risk individuals - mammogram up-to-date - Colon cancer screening starting at age 45 (colonoscopy every 10 years/annual FOBT plus flexi sigmoidoscopy every 5 years/double-contrast BE every 5 years/Cologuard every 3 years/Annual FOBT) - up to date - Cervical cancer testing every 1-3 years - patient is up-to-date - Blood pressure annual screening performed - Cholesterol screening every five years - she is now on Lipitor 20 mg daily. Labs ordered - Osteoporosis prevention including calcium/vitamin D intake, weight bearing exercise & smokingcessation - Nutritional and exercise counseling - patient advised to pursue at least 30 minutes of exercise most days of the week and limit portion sizes. She is prescribed Zepbound 2.5 mg weekly, is awaiting prior authorization - Counseling of injury prevention including fire prevention, smoke alarms and seat belt usage - Screening for depression - over the past TWO WEEKS, been bothered by little INTEREST or PLEASURE in doing things or by feeling DOWN, DEPRESSED, or HOPELESS? No - Recommendations about immunizations - patient is due for Tdap immunization, Influenza immunization, Pneumonia immunization, and COVID-19 vaccination but defers this - Recommendation of an eye exam for glaucoma every 2-4 years in this age range - patient is up-to-date - Screening for substance abuse (including tobacco, alcohol, and recreational drugs) - see Substance & Sexuality section of medical record - Genetic cancer risk screening - NO INDICATION: Hereditary Cancer Syndrome Risk Assessment completed and evaluated. No indication found for genetic testing at this time. - In addition to reviewing these issues, I have reviewed the following sections of the chart: Past Medical History, Social History, and Social History - Did you have a dental visit in the last 12 months? Yes - Did you have a dental problem in the last 6 months? No Orders Placed This Encounter Procedures Comprehensive metabolic panel Standing Status: Future Standing Expiration Date: 03/22/2025 Lipid panel with reflex to direct LDL Standing Status: Future Standing Expiration Date: 03/22/2025 JAI Brooks on 03/22/2024 at 2:09 PM EST documented in this encounter Plan of Treatment Upcoming Encounters Date Type Department Care Team (Late st Contact Info) Description 05/03/2024 9:30 AM EDT Office Visit Adult Medicine East - [place] [address], [place] [phone] Joy Zamora PA [address], [place] 11/18/2024 2:00 PM EDT Appointment Radiology Department - [address] [phone] documented as of this encounter Results * (ABNORMAL) Lipid panel with reflex to direct LDL (04/05/2024 9:47 AM EST) Cholesterol 225(H) 0 - 200 mg/dL LAB CHEMISTRY METHOD 04/05/2024 3:07 PM [facility] Triglycerides 100 0 - 150 mg/dL LAB CHEMISTRY METHOD 04/05/2024 3:07 PM EST [facility] HDL 57 >=40 mg/dL LAB CHEMISTRY METHOD 04/05/2024 3:07 PM [facility] LDL Calculated 148(H) 0 - 100 mg/dL LAB CHEMISTRY METHOD 04/05/2024 3:07 PM [facility] VLDL Cholesterol Blake 20 mg/dL LAB CHEMISTRY METHOD 04/05/2024 3:07 PM [facility] Non HDL Chol. (LDL+VLDL) 168(H) <145 mg/dL LAB CHEMISTRY METHOD 04/05/2024 3:07 PM [facility] Chol/HDL Ratio 3.9 0.0 - 4.4 LAB CHEMISTRY METHOD 04/05/2024 3:07 PM [facility] Blood Venous blood specimen / Unknown Venipuncture / Unknown 04/05/2024 9:47 AM EST 04/05/2024 9:47 AM EST us Joy VERGARA LAB BLOOD ORDERABLES Final Resul t [facility] [address] [place] [address], [place] [phone] * (ABNORMAL) Comprehensive metabolic panel (04/05/2024 9:47 AM EST) Sodium 138 133 - 145 mmol/L LAB CHEMISTRY METHOD 04/05/2024 3:07 PM [facility] Potassium 4.8 3.5 - 5.5 mmol/L LAB CHEMISTRY METHOD 04/05/2024 3:07 PM [facility] Chloride 103 96 - 110 mmol/L LAB CHEMISTRY METHOD 04/05/2024 3:07 PM [facility] CO2 32 21 - 32 mmol/L LAB CHEMISTRY METHOD 04/05/2024 3:07 PM [facility] Anion Gap 3 3 - 11 LAB CHEMISTRY METHOD 04/05/2024 3:07 PM [facility] Glucose 84 70 - 100 mg/dL LAB CHEMISTRY METHOD 04/05/2024 3:07 PM [facility] BUN 11 5 - 25 mg/dL LAB CHEMISTRY METHOD 04/05/2024 3:07 PM [facility] Creatinine 0.79 0.50 - 1.10 mg/dL LAB CHEMISTRY METHOD 04/05/2024 3:07 PM [facility] eGFR 94 >=60 mL/min/1. 73m2 LAB CHEMISTRY METHOD 04/05/2024 3:07 PM [facility] Comment:Calculation based on the??Chronic Kidney Disease Epidemiology Collaboration (CKD-EPI) equation refit??without adjustment for race. BUN/Creatinine Ratio 13.9 LAB CHEMISTRY METHOD 04/05/2024 3:07 PM [facility] Calcium 9.5 8.5 - 10.5 mg/dL LAB CHEMISTRY METHOD 04/05/2024 3:07 PM [facility] AST (SGOT) 34 10 - 42 unit/L LAB CHEMISTRY METHOD 04/05/2024 3:07 PM [facility] ALT (SGPT) 70(H) 10 - 60 unit/L LAB CHEMISTRY METHOD 04/05/2024 3:07 PM [facility] Alkaline Phosphatase 186(H) 42 - 121 unit/L LAB CHEMISTRY METHOD 04/05/2024 3:07 PM [facility] Total Protein 7.5 6.0 - 8.0 g/dL LAB CHEMISTRY METHOD 04/05/2024 3:07 PM [facility] Albumin 4.1 3.2 - 5.0 g/dL LAB CHEMISTRY METHOD 04/05/2024 3:07 PM [facility] Total Bilirubin 0.6 0.0 - 1.4 mg/dL LAB CHEMISTRY METHOD 04/05/2024 3:07 PM [facility] Blood Venous blood specimen / Unknown Venipuncture / Unknown 04/05/2024 9:47 AM EST 04/05/2024 9:47 AM EST us Joy Noah PA LAB BLOOD ORDERABLES Final Resul t [facility] [address] [place] [address], documented in this encounter Visit Diagnoses Diagnosis Routine general medical examination at a health care facility- Primary Primary hypertension Unspecified essential hypertension Pure hypercholesterolemia Class 3 severe obesity with serious comorbidity and body mass index (BMI) of 40.0 to 44.9 in adult, unspecified obesity type ([facility]) Encounter for screening mammogram for breast cancer documented in this encounter Additional Health Concerns Assessment Noted Time PHQ-9 Depression Total Score: 0 03/22/19 25 12:46 PM EST documented as of this encounter Care Teams Blender Helper Relationship Specialty Start Date End Date Primo Villalobos MD [address] [place] [address] PCP - General 12/11/22 documented as of this encounter
--- OUTSIDE RECORDS SUMMARY | 2024-04-20 12:54 | XMS_ITS | Encounter Summary ---
Author Organization [facility] Address [address] [place] [address] Care Team Providers Care Scada Technician Name Role Phone Chantel Medley MD Primary Care Provider U Priscila Corona MD Primary Care Provider [phone] Primo Villalobos MD Primary Care Provider Encounter Details Date Type Department Care Team Description 12/28/2018 [facility] Medical Records [address] [place] [id number] Dyan Miller DO Social History Tobacco Use [...] on filedocumented in this encounter Care Teams Scada Technician Relationship Specialty Start Date End Date Chantel Medley MD PCP - General Internal Medicine 11/10/1703/26 Priscila Caballero MD [address] [place] [address] [phone] PCP - General Internal Medicine 03/27/22 12/10/22 Primo Villalobos MD [address] [place] [address] [id number] PCP - General Internal Medicine 12/11/22 documented as of this encounter
--- OUTSIDE RECORDS SUMMARY | 2024-04-20 12:54 | XMS_ITS | Encounter Summary ---
Author Organization [facility] Address [address] [place] [address] Care Team Providers Care Pear Picker Name Role Phone Chantel Medley MD Primary Care Provider U Priscila Corona MD Primary Care Provider [phone] Primo Villalobos MD Primary Care Provider Reason for Visit * Reason Onset Date Comments REFERRAL 12/15/2017 Encounter Details Date Type Department Care Team Description 12/15/2017 Telephone Genetic & Disease Counseling - [address] [id number] Tiff Au PA-C REFERRAL Social History Tobacco Use Types Packs/Day [...] encounter Miscellaneous Notes * Telephone Encounter - Nayeli Huang - 12/15/2017 11:16 AM EDT FYI ONLY. Called pt 12/03/17,12/05/17, and sent letter 12/08/17 with no response. I am removing this pt's order from the genetic testing schedule. Order expires 11/18/18,[facility]. documented in this encounter Plan of Treatment Not on file documented as of this encounter Visit Diagnoses Not on filedocumented in this encounter Care Teams Pear Picker Relationship Specialty Start Date End Date Chantel Medley MD PCP - General Internal Medicine 11/10/1703/26 Priscila Caballero MD [address] [place] [phone] PCP - General Internal Medicine 03/27/22 12/10/22 Primo Villalobos MD [address] [place] [phone] PCP - General Internal Medicine 12/11/22 documented as of this encounter
--- OUTSIDE RECORDS SUMMARY | 2024-04-20 12:54 | XMS_ITS | Encounter Summary ---
Author Organization [facility] Address [address] [place] [address] Care Team Providers Care Patient Support Partner Name Role Phone Chantel Medley MD Primary Care Provider U Priscila Corona MD Primary Care Provider [phone] Primo Villalobos MD Primary Care Provider Encounter Details Date Type Department Care Team Description 12/31/2021 Orders Only Adult Medicine A - [place] [address] [place] [address] Chantel Medley MD Preoperative examination; Screening for [...] documented as of this encounter Visit Diagnoses Diagnosis Preoperative examination Preoperative examination, unspecified Screening for deficiency anemia Screening for other and unspecified deficiency anemia documented in this encounter Care Teams Patient Support Partner Relationship Specialty Start Date End Date Chantel Medley MD PCP - General Internal Medicine 11/10/1703/26 Priscila Caballero MD [address] [place] [id number] PCP - General Internal Medicine 03/27/22 12/10/22 Primo Villalobos MD [address] [place] [id number] PCP - General Internal Medicine 12/11/22 documented as of this encounter
--- OUTSIDE RECORDS SUMMARY | 2024-04-20 12:54 | XMS_ITS | Encounter Summary ---
Author Organization [facility] Address [address] [place] [address] Care Team Providers Care Survey Research Manager Name Role Phone Primo Villalobos MD Primary Care Provider Encounter Details Date Type Department Care Team (Late st Contact Info) Description 03/22/2024 Telephone Adult Medicine [facility] [address], [place] [phone] Joy Zamora PA [address], [place] Social History Tobacco Use Types Packs/Day Years [...] care for your loved ones. For example, maternal child nurse or elderly care for an older adult? 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 * JAI Garay - 03/23/2024 9:06 AM EST Patient said it was [facility]. Can we check [facility] then. * Chetna Quiroz MA - 03/23/2024 8:44 AM EST I went back 5 years are we sure it was [facility] * JAI Garay - 03/22/2024 2:09 PM EST Please request colonoscopy from [facility] 2 years ago. documented in this encounter Plan of Treatment Upcoming Encounters Date Type Department Care Team (Late st Contact Info) Description 05/03/2024 9:30 AM EDT Office Visit Adult Medicine East - [address] [phone] Joy Zamora PA [address] [place] [address] 11/18/2024 2:00 PM EDT Appointment Radiology Department - [address] [phone] documented as of this encounter Visit Diagnoses Not on filedocumented in this encounter Additional Health Concerns Assessment Noted Time PHQ-9 Depression Total Score: 0 03/22/19 12:46 PM EST documented as of this encounter Care Teams Survey Research Manager Relationship Specialty Start Date End Date Primo Villalobos MD [address] [place] [address] PCP - General 12/11/22 documented as of this encounter
== END 2024-04-20 11:51 | disposition home or self-care (01) ==
PROVIDERS: PCP Internal Medicine; Visit Provider Physician Assistant Surgical
DX: E66.812 Obesity, class 2 (principal); Z68.39 Body mass index [BMI] 39.0-39.9, adult; Z90.3 Acquired absence of stomach [part of]; Z98.84 Bariatric surgery status
CPT/HCPCS: 99214; G2211

== ENCOUNTER → 2024-04-20 10:45 | Outpatient (BNVA) | payer OTHER, SELFPAY | PROVIDERS: PCP Internal Medicine; Visit Provider Physician Assistant Surgical | DX: E66.9 Obesity, unspecified (principal); Z98.84 Bariatric surgery status; Z68.39 Body mass index [BMI] 39.0-39.9, adult | CPT/HCPCS: 99212 ==

== ENCOUNTER 2024-05-10 09:55 | Outpatient (REF) | payer OTHER, SELFPAY ==
[2024-05-10 10:13] LABS: MANUAL DIFF FLAG NO
[2024-05-10 10:22] LABS: Basophils Percent Auto 0.7 % (0-2); Eosinophils Absolute Auto 0.1 X10*3/uL (0.0-0.4); Eosinophils Percent Auto 1.6 % (0-4); Hematocrit 43.5 % (37.0-47.0); Hemoglobin 14.6 g/dl (12.0-16.0); Imm Gran Abs Auto 0.01 X10*3/uL (0.00-0.03); Imm Gran Pct Auto 0.2 % (0.0-0.4); Lymphocytes Absolute Auto 1.6 X10*3/uL (1.2-4.9); Lymphocytes Percent Auto 27.4 % (20-40); Mean Corpuscular HGB Conc 33.6 g/dl (31.0-35.0); Mean Corpuscular Hemoglobin 29.9 pg (27.0-33.0); Mean Corpuscular Volume 89.1 fL (80.0-98.0); Mean Platelet Volume 9.3 fL (9.4-12.3); Monocytes Absolute Auto 0.5 X10*3/uL (0.1-1.2); Monocytes Percent Auto 8.1 % (2-11); Neutrophils Absolute Auto 3.6 x10*3/uL (2.0-8.3); Platelet Count 267 X10*3/uL (160-400); Red Blood Count 4.88 X10*6/uL (4.20-5.50); Red Cell Distribution Width 12.5 % (11.0-16.0); White Blood Count 5.8 X10*3/uL (4.8-10.8)
[2024-05-10 11:18] LABS: Folate 4.6 ng/mL (> or = 4.0); Vitamin B12 986 pg/mL (200-900)
[2024-05-10 11:21] LABS: Vitamin D 25-OH Total 63.9 ng/mL (>30)
[2024-05-12 18:08] LABS: Zinc 66 mcg/dL (60-130)
[2024-05-13 12:19] LABS: Vitamin A 41 mcg/dL (38-98)
[2024-05-18 15:03] LABS: Vitamin B1 27 nmol/L (8-30)
== END 2024-05-10 09:56 | disposition home or self-care (01) ==
LOC: HO.LAB 09:55
PROVIDERS: PCP Internal Medicine; Visit Provider Physician Assistant Surgical
DX: Z98.84 Bariatric surgery status (principal)
CPT/HCPCS: 36415; 82306; 82607; 82746; 84425; 84590; 84630; 85025

== ENCOUNTER 2024-07-20 11:40 | Outpatient (AMB) | payer OTHER, SELFPAY ==
--- NOTE | 2024-07-20 11:38 | MHC.OFFVISWM ---
VS Expanded 07/20/24 11:39 Height 5 ft Weight 185 lb BMI 36.1 Intake Visit Reasons: TV PO LSG 12/25/2017 Allergies hydrocodone [From VICODIN] Allergy (Unknown, Verified 04/20/24 10:52) SWELLING, DIFF SWALLOWING morphine [MORPHINE] Allergy (Unknown, Verified 04/20/24 10:52) PASSED OUT Penicillins [PENICILLINS] Allergy (Unknown, Verified 04/20/24 10:52) SWELLING, DIFF SWALLOWING Morphine Allergy (Unknown, Uncoded 04/20/24 10:52) low resp rate Penicillin Allergy (Unknown, Uncoded 04/20/24 10:52) itchhing,hives, swelling of throat vicodine Allergy (Unknown, Uncoded 04/20/24 10:52) itching, hivese, swelling of throat Medication List - Last Reconciled 07/20/24 by JAI Roberts atorvastatin 20 mg PO DAILY cholecalciferol (vitamin D3) 25 mcg PO DAILY cyanocobalamin (vitamin B-12) 1,000 mcg PO DAILY iron,carbonyl-vitamin C 65 mg iron- 125 mg (Vitron-C) 1 tab PO DAILY multivit with min-folic acid 200 mcg tabs PO ondansetron 4 mg PO Q8H PRN pantoprazole 20 mg PO DAILY thiamine HCl (vitamin B1) 100 mg PO DAILY tirzepatide (weight loss) (Zepbound) 10 mg subcut QWEEK vitamin A 10,000 units PO DAILY HPI Comments Details: This is a 48 yo female who is s/p LSG 12/25/2017. Weight loss of 14lbs since last OV 3 mo ago. No complaints of emesis, abdominal pain. Reflux occasionally at night when she lies flat. Nausea with Zepbound injections- was given Zofran but causes constipation for her. Using Benefiber now which helped somewhat. She reports she had an abdominal wall hernia noted on a previous CT scan done at [facility]. It is more bothersome now that she has lost some weight. CT report notes a small hiatal hernia, diastasis recti, and two small/tiny herniae around the umbilicus. Present meal plan includes: Premier premade protein shake for breakfast 8am 12pm soup or tuna or salad or half protein yogurt dinner protein and vegetables better at snacking now, less nighttime eating staying hydrated Exercise routine includes: has increased her walking sometimes does home videos, more weight training Pt reports issues with excess skin of abdomen. Has had to use powder for rashes that have started occurring. These rashes are painful and itchy. Has to clean and wash frequently- gets moisture/sweat in the skin folds which has an unpleasant odor. Activities of daily living are more difficult including bending over/squatting and putting pants on that fit appropriately. As she continues to lose weight these problems have worsened. Excess skin of legs rubs together and chafes. This is very uncomfortable and painful. This makes walking more difficult/painful also. This is particularly bad in summertime when weather is warmer and she wears shorts. [facility] Medical History Arthritis History of PCOS Obesity Sciatica Hyperlipidemia type II Depression Surgical History Hx of hysterectomy Hx of foot surgery Status post laser cataract surgery of left eye Previous section Hx laparoscopic cholecystectomy S/P laparoscopic sleeve gastrectomy Family History Mother Thyroid disease CHF (congestive heart failure) Father Hypertension High cholesterol Sister Hyperglycemia Sister No problems noted. Son No problems noted. Daughter No problems noted. Social History Alcohol intake: never Patient Tobacco Use Status: Never used Tobacco Telehealth Telehealth Telehealth Platform: Telephone Location of provider rendering services: practice address Location of patient: address on file Patient Identification confirmed using: Name, : Yes Telehealth method: voice only Patient verbally consented to treatment: Yes Patient verbally consented to billing insurance company: Yes Patient informed of any privacy concerns related to visit: Yes Minutes spent on Phone/Video with Pt.: 16 Assessment & Plan Assessment & Plan (1) Obesity: Code(s): E66.9 - Obesity, unspecified Category: Medical (2) S/P laparoscopic sleeve gastrectomy: Code(s): Z98.84 - Bariatric surgery status Category: Surgical Plan Pt to continue Zepbound, current meal plan; goal 75g protein per day. Can take MoM or Miralax for constipation PRN in addition to Benefiber. RTC 3mo.
[2024-07-20 11:39] VITALS: BMI 36.1
--- OUTSIDE RECORDS SUMMARY | 2024-07-20 12:18 | XMS_ITS | Encounter Summary ---
Author Organization [facility] Address [address] [place] [address] Care Team Providers Care Basting Machine Operator Name Role Phone Mikey Gómez MD Primary Care Provider [phone] Chantel Medley MD Primary Care Provider U Priscila Corona MD Primary Care Provider [phone] Primo Villalobos MD Primary Care Provider Reason for Visit * Reason Onset Date Comments APPOINTMENT 07/14/2015 Encounter Details Date Type Department Care Team Description 07/14/2015 Telephone [address] [place] [phone] Melvin Granger PA-C APPOINTMENT Social History Tobacco Use Types Packs/Day Years [...] Miscellaneous Notes * Telephone Encounter - Nayeli Huizar - 07/14/2015 8:03 AM EDT Patient is referred to: Dermatology. Reason for referral: skin tag removal Priority: Next Available FYI Patient no showed there appt with Mr Granger on 07/10/15. We left two message to reschedule the appt and no response from the patient. documented in this encounter Plan of Treatment Not on file documented as of this encounter Visit Diagnoses Not on filedocumented in this encounter Care Teams Basting Machine Operator Relationship Specialty Start Date End Date Mikey Gómez MD [address] [place] [id number] PCP - General Internal Medicine 09/19/14 11/09/17 Chantel Medley MD [address] [place] [id number] PCP - General Internal Medicine 11/10/17 03/26/22 Priscila Caballero MD [address] [place] [id number] PCP - General Internal Medicine 03/27/22 12/10/22 Primo Villalobos MD [address] [place] [id number] PCP - General Internal Medicine 12/11/22 documented as of this encounter
== END 2024-07-20 11:57 | disposition home or self-care (01) ==
LOC: HO.HBS 11:40
PROVIDERS: PCP Internal Medicine; Visit Provider Physician Assistant Surgical
DX: E66.9 Obesity, unspecified (principal); Z98.84 Bariatric surgery status
CPT/HCPCS: 99214; G2211

== ENCOUNTER 2024-10-19 12:59 | Outpatient (AMB) | payer OTHER, SELFPAY ==
--- NOTE | 2024-10-19 12:31 | A.OFFVIS_ITS ---
VS Expanded 10/19/24 12:32 Height 5 ft Weight 168 lb BMI 32.8 Intake Visit Reasons: TELEPHONE PO LSG 12/25/17 Allergies hydrocodone (From VICODIN) Allergy (Unknown, Verified 04/20/24 10:52) SWELLING, DIFF SWALLOWING morphine (MORPHINE) Allergy (Unknown, Verified 04/20/24 10:52) PASSED OUT Penicillins (PENICILLINS) Allergy (Unknown, Verified 04/20/24 10:52) SWELLING, DIFF SWALLOWING Morphine Allergy (Unknown, Uncoded 04/20/24 10:52) low resp rate Penicillin Allergy (Unknown, Uncoded 04/20/24 10:52) itchhing,hives, swelling of throat vicodine Allergy (Unknown, Uncoded 04/20/24 10:52) itching, hivese, swelling of throat Medication List - Last Reconciled 10/19/24 by JAI Roberts atorvastatin 20 mg PO DAILY cholecalciferol (vitamin D3) 25 mcg PO DAILY cyanocobalamin (vitamin B-12) 1,000 mcg PO DAILY iron,carbonyl-vitamin C 65 mg iron- 125 mg (Vitron-C) 1 tab PO DAILY multivit with min-folic acid 200 mcg tabs PO ondansetron 4 mg PO Q8H PRN pantoprazole 20 mg PO DAILY thiamine HCl (vitamin B1) 100 mg PO DAILY tirzepatide (weight loss) (Zepbound) 15 mg subcut QWEEK vitamin A 10,000 units PO DAILY HPI Comments Details: This is a 49 yo female who is s/p LSG 12/25/2017. Weight loss of 14lbs since last OV 3 mo ago. No complaints of emesis, abdominal pain. Reflux occasionally at night when she lies flat. Nausea with Zepbound injections- was given Zofran. Using Benefiber for constipation which helped somewhat; will take miralax if more than 3d since BM. Present meal plan includes: Premier premade protein shake for breakfast 8am 12pm soup or tuna or salad or half protein yogurt dinner protein and vegetables better at snacking now, less nighttime eating staying hydrated Exercise routine includes: has increased her walking sometimes does home videos, more weight training Pt reports issues with excess skin of abdomen. Has had to use powder for rashes that have started occurring. These rashes are painful and itchy. Has to clean and wash frequently- gets moisture/sweat in the skin folds which has an unpleasant odor. Activities of daily living are more difficult including bending over/squatting and putting pants on that fit appropriately. She has noticed increased pain in back and lower hips due to additional excess skin as she continues to lose weight. Excess skin of legs rubs together and chafes. This is very uncomfortable and painful. This makes walking more difficult/painful also. This is particularly bad in summertime when weather is warmer and she wears shorts. [facility] Medical History Arthritis History of PCOS Obesity Sciatica Hyperlipidemia type II Depression Surgical History Hx of hysterectomy Hx of foot surgery Status post laser cataract surgery of left eye Previous section Hx laparoscopic cholecystectomy S/P laparoscopic sleeve gastrectomy Family History Mother Thyroid disease CHF (congestive heart failure) Father Hypertension High cholesterol Sister Hyperglycemia Sister No problems noted. Son No problems noted. Daughter No problems noted. Social History Alcohol intake: never Patient Tobacco Use Status: Never used Tobacco Telehealth Telehealth Telehealth Platform: Telephone Location of provider rendering services: practice address Location of patient: address on file Patient Identification confirmed using: Name, : Yes Telehealth method: voice only Patient verbally consented to treatment: Yes Patient verbally consented to billing insurance company: Yes Patient informed of any privacy concerns related to visit: Yes Minutes spent on Phone/Video with Pt.: 15 Assessment & Plan Assessment & Plan (1) Obesity: Code(s): E66.9 - Obesity, unspecified Category: Medical (2) S/P laparoscopic sleeve gastrectomy: Code(s): Z98.84 - Bariatric surgery status Category: Surgical Plan Weight target 138-140 for BMI < 27. Clotrimazole ointment ordered for rashes of excess skin. Pt reports excess skin of belly is most bothersome, unsure if she would like to pursue surgery for legs/arms. RTC 4mo, for in person visit; can take photos and perform physical exam at that time. Medications: New clotrimazole 1% 1 appl topical BID 45 grams 3RF
[2024-10-19 12:32] VITALS: BMI 32.8
--- OUTSIDE RECORDS SUMMARY | 2024-10-19 13:41 | XMS_ITS ---
Author Name [facility] Organization Unknown Care Team Organization Name Specialty Phone Email Start Date End Da te [facility] Priscila Caballero Primary Care 08/29/2022 024 [facility] Wendy Fitzpatrick Primary Care 07/01/20222023 [facility] Chantel Rai Primary Care 01/01/2022
--- OUTSIDE RECORDS SUMMARY | 2024-10-19 13:41 | XMS_ITS | Clinical Summary ---
Author Organization [facility] [address] [place] [address] [place] [phone] Phone Care Team Providers Care Ink Blender Name Role Phone Primo Villalobos MD Primary Care Provider Allergies Active Allergy Reactions Criticality Noted Date Comments Cat Dander 08/13/2022 Hydrocodone-Acetaminophen Itching,Rash 11/23/19 10 Morphine 11/18/2017 Penicillin Congestion of the throat 12/05/2023 Medications cyanocobalamin (Vitamin B-12) 1,000 mcg tablet Take 50 mcg by mouth. 2 Active iron fum/vit C/ascorbate sod (IRON PLUS VITAMIN C ORAL) Take by mouth. Active VITAMIN A ORAL Take by mouth. Active cholecalciferol , vitamin D3, (VITAMIN D3 ORAL) Take by mouth. Active atorvastatin (LIPITOR) 20 mg tablet TAKE ONE TABLET BY MOUTH EVERY DAY 30 tablet 5 5 Active thiamine 100 mg tablet Take 1 tablet (100 mg total) by mouth 1 (one) time each day. 5 Active ondansetron (ZOFRAN) 4 mg tablet Take 1 tablet (4 mg total) by mouth every 8 (eight) hours if needed for nausea or vomiting. 30 tablet 1 5 Active Zepbound 15 mg/0.5 mL injectionIndica tions:Class 2 severe obesity due to excess calories with serious comorbidity and body mass index (BMI) of 35.0 to 35.9 in adult (CMS/HCC V24, [facility] V28) Inject 0.5 mL (15 mg total) under the skin every 7 (seven) days. 3 mL 5 5 Active pantoprazole (PROTONIX) 20 mg EC tablet TAKE ONE TABLET BY MOUTH EVERY DAY 90 tablet 1 5 Active pantoprazole (PROTONIX) 20 mg EC tablet TAKE ONE TABLET BY MOUTH EVERY DAY 90 tablet 5 10/15/19 25 Discontinued Active Problems Problem Noted Date Diagnosed Date Severe obesity ([facility] V24, [facility] V28) 2023 COVID-19 09/18/2021 Overview (12/05/2023): Home test 09/15/21 Hyperlipidemia 05/06/2008 Obesity (BMI 30.0-34.9) 2005 Resolved Problems Problem Noted Date Diagnosed Date Resolved Date HTN (hypertension) 06/13/2016 Chronic low back pain 07/03/20112024 Mild dysplasia of cervix 09/11/201002/2024 Asthma 2005 05/25/2024 Encounters Date Type Department Care Team Description 09/17/2024 Telephone Adult Medicine [address] [phone] Primo Villalobos MD 09/15/2024 Telephone Adult Medicine [address] [phone] Primo Villalobos MD 08/06/2024 12:00 PM EDT Office Visit Adult Medicine [address] [phone] Primo Villalobos MD Class 2 severe obesity due to excess calories with serious comorbidity and body mass index (BMI) of 35.0 to 35.9 in adult ([facility] V24, [facility] V28) (Primary Dx); Pure hypercholesterolemia from Last 3 Months Immunizations Name Administration Dates Next Due Hepatitis B (Xhxeryq-L-Wlugs , Recombivax HB-Adult) 19yo and older 06/15/2008,05/06/2008 [...] History Medical History Date Comments Morbid obesity ([facility] V24, [facility] V28) Hyperlipidemia Mild intermittent asthma Other specified personal [...] Date Smoking Tobacco: Never Smokeless Tobacco: Never Tobacco Cessation:Counseling Given: Not Answered Alcohol Use Standard Drinks/Week Comments No 0 [...] ed Within the last 3 months, [place] many times did you visit the emergency [...] care for your loved ones. For example, housekeeper child care or elderly care for an older adult? [...] is your living situation? 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 [employer] Not on file Not on fi le Not on file Obstetrics History Last Filed Vital Signs Vital Sign Reading Time Taken Comments Blood Pressure 134/85 08/06/2024 11:50 AM EDT Pulse 78 08/06/2024 11:50 AM EDT Temperature 36.3 C (97.4 F) 08/06/2024 11:50 AM EDT Respiratory Rate 16 08/06/2024 11:50 AM EDT Oxygen Saturation 97% 06/24/2024 12:18 PM EDT Inhaled Oxygen Concentration - - Weight 82 kg (180 lb 12.8 oz) 08/06/2024 11:50 A M EDT Height 152.4 cm (5') 08/06/2024 11:50 AM EDT Body Mass Index 35.31 08/06/2024 11:50 AM EDT Plan of Treatment Upcoming Encounters Date Type Department Care Team (Late st Contact Info) Description 11/18/2024 2:20 PM EDT Appointment Radiology Department [address] [phone] 02/11/2025 11:00 AM EST Office Visit Adult Medicine East [address] [phone] Primo Villalobos MD [address] [place] [address] Health Maintenance Due Date Last Done Comments Hepatitis B Vaccines (3 of 3 - 19+ 3-dose series) 11/06/2008 06/15/2008, 05/06/2008 Breast Cancer Screening 11/11/2024 11/12/19 24, 11/12/2023, 11/07/2022, Additional history exists Cervical Cancer Screening: HPV 03/09/2025 03/09/2020 DTaP,Tdap,and Td Vaccines (4 - Td or Tdap) 03/22/2025 07/03/2011, 08/10/2002, 08/10/2002 Postponed from 07/02/2021 (Patient Refused) Social Influencers of Health Screening 03/22/2025 03/22/2024 Hypertension/CHF/CAD Annual BMP Blood Test 04/05/2025 04/05/2024, 07/31/2022 Cholesterol Screening (Lipid Panel) 04/05/2029 04/05/2024, 12/01/2019 Colorectal Cancer Screening: Colonoscopy 12/03/2032 12/03/2022 HIV Screening Completed 12/01/2019 Influenza Vaccine Discontinued 12/13/2019, , 03/09/2012, Additional history exists Depression Screening Completed 03/22/2024, 11/12/19 24 Hepatitis C Screening Completed 05/25/2024, 020 COVID-19 Vaccine Discontinued HIB Vaccines Aged Out [...] age to complete this topic Meningococcal B Vaccine Aged Out No l onger eligible based on patient's age to complete this topic Pneumococcal Vaccine: Pediatrics (0 to 5 Years) and At-Risk Patients (6 to 49 Years) Discontinued RSV Immunization Patients Under 20 months Aged Out No longer eligible based on patient's age to complete this topic Varicella Vaccines Aged Out No longer eligible based on patient's age to complete this topic Procedures Procedure Name Priority Date/Time Associated Diagnosis Comments HEPATITIS PANEL, ACUTE WITH REFLEX TO CONFIRMATION Routine 05/25/2024 9:28 AM EDT Elevated LFTs COMPREHENSIVE METABOLIC PANEL Routine 04/05/2024 9:47 AM EST Pure hypercholesterolemia LIPID PANEL WITH REFLEX TO DIRECT LDL Routine 04/05/2024 9:47 AM EST Pure hypercholesterolemia SCREENING MAMMOGRAPHY BI 2-VIEW BREAST INC CAD Routine 11/12/2023 1:43 PM EDT Encounter for screening mammogram for malignant neoplasm of breast HM DEPRESSION SCREENING Routine 11/12/2023 EXTERNAL COLONOSCOPY REPORT Routine 12/03/2022 12:00 AM EDT HPV Routine 03/09/2020 HIV SCREENING Routine 12/01/2019 from Last 3 Months or Most Recently Relevant to Health Maintenance Results * Hepatitis panel, acute with reflex to confirmation (05/25/2024 9:28 AM EDT) Hepatitis B Surface Ag Negative Negative LAB CHEMISTRY METHOD 05/25/2024 5:43 PM EDT [facility] Hepatitis A Antibody IgM Negative Negative LAB CHEMISTRY METHOD 05/25/2024 5:43 PM EDT [facility] Hep B Core IgM Negative Negative LAB CHEMISTRY METHOD 05/25/2024 5:43 PM EDT [facility] Hepatitis C Antibody Negative Negative LAB CHEMISTRY METHOD 05/25/2024 5:43 PM EDT [facility] Blood Venous blood specimen / Unknown Venipuncture / Unknown 05/25/2024 9:28 AM EDT 05/25/2024 9:28 AM EDT us Joy Noah PA LAB BLOOD ORDERABLES Final Resul t [facility] [address] [place] [address], [place] [phone] * (ABNORMAL) Lipid panel with reflex to direct LDL (04/05/2024 9:47 AM EST) Cholesterol 225(H) 0 - 200 mg/dL LAB CHEMISTRY METHOD 04/05/2024 3:07 PM [facility] Triglycerides 100 0 - 150 mg/dL LAB CHEMISTRY METHOD 04/05/2024 3:07 PM EST [facility] HDL 57 >=40 mg/dL LAB CHEMISTRY METHOD 04/05/2024 3:07 PM [facility] LDL Calculated 148(H) 0 - 100 mg/dL LAB CHEMISTRY METHOD 04/05/2024 3:07 PM [facility] VLDL Cholesterol Blake 20 mg/dL LAB CHEMISTRY METHOD 04/05/2024 3:07 PM [facility] Non HDL Chol. (LDL+VLDL) 168(H) <145 mg/dL LAB CHEMISTRY METHOD 04/05/2024 3:07 PM [facility] Chol/HDL Ratio 3.9 0.0 - 4.4 LAB CHEMISTRY METHOD 04/05/2024 3:07 PM [facility] Blood Venous blood specimen / Unknown Venipuncture / Unknown 04/05/2024 9:47 AM EST 04/05/2024 9:47 AM EST us Joy Noah [place] LAB BLOOD ORDERABLES Final Resul t [facility] [address] [place] [address], [place] [phone] * (ABNORMAL) Comprehensive metabolic panel (04/05/2024 9:47 AM EST) Sodium 138 133 - 145 mmol/L LAB CHEMISTRY METHOD 04/05/2024 3:07 PM [facility] Potassium 4.8 3.5 - 5.5 mmol/L LAB CHEMISTRY METHOD 04/05/2024 3:07 PM [facility] Chloride 103 96 - 110 mmol/L LAB CHEMISTRY METHOD 04/05/2024 3:07 PM [facility] CO2 32 21 - 32 mmol/L LAB CHEMISTRY METHOD 04/05/2024 3:07 PM [facility] Anion Gap 3 3 - 11 LAB CHEMISTRY METHOD 04/05/2024 3:07 PM [facility] Glucose 84 70 - 100 mg/dL LAB CHEMISTRY METHOD 04/05/2024 3:07 PM [facility] BUN 11 5 - 25 mg/dL LAB CHEMISTRY METHOD 04/05/2024 3:07 PM [facility] Creatinine 0.79 0.50 - 1.10 mg/dL LAB CHEMISTRY METHOD 04/05/2024 3:07 PM [facility] eGFR 94 >=60 mL/min/1. 73m2 LAB CHEMISTRY METHOD 04/05/2024 3:07 PM [facility] Comment:Calculation based on the Chronic Kidney Disease Epidemiology Collaboration (CKD-EPI) equation refit without adjustment for race. BUN/Creatinine Ratio 13.9 LAB CHEMISTRY METHOD 04/05/2024 3:07 PM [facility] Calcium 9.5 8.5 - 10.5 mg/dL LAB CHEMISTRY METHOD 04/05/2024 3:07 PM [facility] AST (SGOT) 34 10 - 42 unit/L LAB CHEMISTRY METHOD 04/05/2024 3:07 PM [facility] ALT (SGPT) 70(H) 10 - 60 unit/L LAB CHEMISTRY METHOD 04/05/2024 3:07 PM [facility] Alkaline Phosphatase 186(H) 42 - 121 unit/L LAB CHEMISTRY METHOD 04/05/2024 3:07 PM [facility] Total Protein 7.5 6.0 - 8.0 g/dL LAB CHEMISTRY METHOD 04/05/2024 3:07 PM EST [facility] Albumin 4.1 3.2 - 5.0 g/dL LAB CHEMISTRY METHOD 04/05/2024 3:07 PM EST [facility] Total Bilirubin 0.6 0.0 - 1.4 mg/dL LAB CHEMISTRY METHOD 04/05/2024 3:07 PM EST [facility] Blood Venous blood specimen / Unknown Venipuncture / Unknown 04/05/2024 9:47 AM EST 04/05/2024 9:47 AM EST us Joy Zamora PA LAB BLOOD ORDERABLES Final Resul t [facility] [address] [place] [address], [place] [phone] * SCREENING MAMMOGRAPHY BI 2-VIEW BREAST INC [...] interpreted with the aid of computer-aided detection. Comparison is made with 11/07/2022 and 01/08/2019. Limitations in patient positioning due to body habitus and images obtained are the best possible. Breast parenchyma is composed of scattered fibroglandular densities. No new suspicious mass, architectural distortion, or suspicious calcifications. Impression: No mammographic evidence of malignancy. BI-RADS 1 - negative [facility] [id number] [place] [address] Procedure Note Bianca Chaparro MD - 12/10/2023 [...] evidence of malignancy. BI-RADS 1 - negative [facility] [address] [place] [address] [id number] Dyan Miller DO IMG XR PROCEDURES Final Result * Depression Screening (11/12/2023) Pathologist Critical access hospital Depression Screening Abstracted Result [facility] Historical Provider HEALTH MAINTENANCE Final Result * External Colonoscopy Report (12/03/2022 12:00 AM EDT) Anatomical Region Laterality Modality Endoscopy Result [facility] Historical Provider GI~PROCEDURE ORDERABLES E dited Result - Final * Cervical Cancer Screening: HPV (03/09/2020) [facility] Cervical Cancer Screening: HPV Abstracted ,Negative Result [facility] Historical Provider HEALTH MAINTENANCE Final Result * HIV Screening (12/01/2019) [facility] HIV Screening Abstracted Result [facility] Historical Provider HEALTH MAINTENANCE Final Result from Last 3 Months or Most Recently Relevant to Health Maintenance Insurance [facility] Care Teams Ink Blender Relationship Specialty Start Date End Date Primo Villalobos MD [address] [place] [address] PCP - General 12/11/22
--- OUTSIDE RECORDS SUMMARY | 2024-10-19 13:41 | XMS_ITS | Encounter Summary ---
Author Organization [facility] Address [address] [place] [address] Care Team Providers Care Mechanism Inspector Name Role Phone Primo Villalobos MD Primary Care Provider Reason for Visit * Reason Onset Date Comments Medication Problem 09/15/2024 Encounter Details Date Type Department Care Team ([facility] st Contact Info) Description 09/15/2024 Telephone Adult Medicine [facility] [address] [place] [phone] Primo Villalobos MD [address] [place] [address] Social History Tobacco Use Types Packs/Day Years [...] for your loved ones. For example, child care development specialist or elderly care for an older adult? 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 She has a different [facility] Plan, now has [facility] instead of the [facility]. [facility] told her to check her to be sure there is a PA on file. Will anything need to be done with the insurance change and the PA? Please advise. Patient will be due for her next dose on Friday. Who is calling about the problem? : The patient Is this a NEW medication?: no How long has the patient been taking this medication? 2024 Who prescribed this medication for the patient? Dr. Villalobos Who is patients PCP?: Primo Villalobos MD Payor: [facility] / Plan: [employer] / Product Type: *No Product type* / documented in this encounter Plan of Treatment Upcoming Encounters Date Type Department Care Team (Late st Contact Info) Description 11/18/2024 2:20 PM EDT Appointment Radiology Department [address] [phone] 02/11/2025 11:00 AM EST Office Visit Adult Medicine [address] [phone] Primo Villalobos MD [address] [place] [address] documented as of this encounter Visit Diagnoses Not on filedocumented in this encounter Additional Health Concerns Assessment Noted Time PHQ-9 Depression Total Score: 0 03/22/19 12:46 PM EST documented as of this encounter Care Teams Mechanism Inspector Relationship Specialty Start Date End Date Primo Villalobos MD [address] [place] [address] PCP - General 12/11/22 documented as of this encounter
== END 2024-10-19 12:59 | disposition home or self-care (01) ==
LOC: HO.HBS 12:59
PROVIDERS: PCP Internal Medicine; Visit Provider Physician Assistant Surgical
DX: E66.9 Obesity, unspecified (principal); Z98.84 Bariatric surgery status
CPT/HCPCS: 99214

== ENCOUNTER 2025-01-26 11:25 | Outpatient (AMB) | payer OTHER, SELFPAY ==
--- NOTE | 2025-01-26 13:10 | A.OFFVIS_ITS ---
VS Expanded 01/26/25 13:28 BP 140/84 H Blood Pressure Location Rt brachial Blood Pressure Position Sitting Pulse 82 Pulse Source Pulse Oximeter Temp 97.9 F Temperature Source Temporal Artery Scan Pulse Oximetry 97 Oxygen Delivery Method Room Air Height 5 ft Weight 150 lb BMI 29.3 Body Fat % 30.4 Body Fat Mass 45.6 Fat Free Mass 104.2 Visceral Fat Rating 6.0 Body Water % 49.6 Body Water Mass 74.2 Muscle Mass/Score 99 Basal Metabolic Rate/Score 1,405 Intake Visit Reasons: OV - PO LSG 12/25/17 PE Allergies hydrocodone (From VICODIN) Allergy (Unknown, Verified 01/26/25 13:15) SWELLING, DIFF SWALLOWING morphine (MORPHINE) Allergy (Unknown, Verified 01/26/25 13:15) PASSED OUT Penicillins (PENICILLINS) Allergy (Unknown, Verified 01/26/25 13:15) SWELLING, DIFF SWALLOWING Morphine Allergy (Unknown, Uncoded 04/20/24 10:52) low resp rate Penicillin Allergy (Unknown, Uncoded 04/20/24 10:52) itchhing,hives, swelling of throat vicodine Allergy (Unknown, Uncoded 04/20/24 10:52) itching, hivese, swelling of throat Medication List - Last Reconciled 01/26/25 by JAI Roberts atorvastatin 20 mg PO DAILY cholecalciferol (vitamin D3) 25 mcg PO DAILY cyanocobalamin (vitamin B-12) 1,000 mcg PO DAILY iron,carbonyl-vitamin C 65 mg iron- 125 mg (Vitron-C) 1 tab PO DAILY ondansetron 4 mg PO Q8H PRN pantoprazole 20 mg PO DAILY thiamine HCl (vitamin B1) 100 mg PO DAILY tirzepatide (weight loss) (Zepbound) 15 mg subcut QWEEK vitamin A 10,000 units PO DAILY HPI Comments Details: This is a 49 yo female who is s/p LSG 12/25/2017. Weight loss of 18lbs since last OV 3 mo ago. No complaints of emesis, abdominal pain. Reflux occasionally at night when she lies flat. Nausea with Zepbound injections- was given Zofran. Using Benefiber for constipation which helped somewhat; will take miralax if more than 3d since BM. Highest weight was 311lb prior to surgery. Present meal plan includes: Premier premade protein shake for breakfast 8am 12pm soup or tuna or salad or half protein yogurt dinner protein and vegetables better at snacking now, less nighttime eating staying hydrated Exercise routine includes: has increased her walking sometimes does home videos, more weight training Pt reports issues with excess skin of abdomen. Has had to use powder for rashes that have started occurring. These rashes are painful and itchy. Has to clean and wash frequently- gets moisture/sweat in the skin folds which has an unpleasant odor. Activities of daily living are more difficult including bending over/squatting and putting pants on that fit appropriately. She has noticed increased pain in back and lower hips due to additional excess skin as she continues to lose weight. Excess skin of legs rubs together and chafes. This is very uncomfortable and painful- feels like something is ripping my skin . This makes walking more difficult/painful also. This is particularly bad in summertime when weather is warmer and she wears shorts. She has to wear compressive pants/shorts at all times. [facility] Medical History Arthritis History of PCOS Obesity Sciatica Hyperlipidemia type II Depression Surgical History Hx of hysterectomy Hx of foot surgery Status post laser cataract surgery of left eye Previous section Hx laparoscopic cholecystectomy S/P laparoscopic sleeve gastrectomy Family History Mother Thyroid disease CHF (congestive heart failure) Father Hypertension High cholesterol Sister Hyperglycemia Sister No problems noted. Son No problems noted. Daughter No problems noted. Social History Alcohol intake: never Patient Tobacco Use Status: Never used Tobacco Physical Exam Vital Signs: Last Vital Signs Temp 97.9 F 01/26/25 13:28 Pulse 82 01/26/25 13:28 BP 140/84 H 01/26/25 13:28 Pulse Ox 97 01/26/25 13:28 Oxygen Delivery Method Room Air 01/26/25 13:28 BMI result Body Mass Index 29.3 Const General: cooperative, comfortable and no acute distress Orientation/consciousness: patient oriented x3 GI Other: Grade III pannus soft, nontender, nondistended, incisions well healed, no hernia, no masses Skin Other: bilateral upper thighs with excess skin with contact from pelvis to knee with feet together; skin folds noted medially Neuro General: patient oriented x3 Assessment & Plan Assessment & Plan (1) S/P laparoscopic sleeve gastrectomy: Code(s): Z98.84 - Bariatric surgery status Category: Medical (2) Obesity: Code(s): E66.9 - Obesity, unspecified Category: Medical (3) Excess skin: Code(s): L98.7 - Excessive and redundant skin and subcutaneous tissue Category: Medical Plan Weight target 138-140 for BMI < 27. However considering her greater than 50% TBWL I told her that if she is able to achieve a weight of 143lb I will discuss with Dr Louis She may lose coverage of GLP1 in February. Clotrimazole ointment ordered for rashes of excess skin. Pt is experiencing issues of excess skin of both arms and abdomen resulting in frequent painful rashes and limiting activities of daily living, causing discomfort and requiring the use of special clothing. She would benefit from definitive treatment of panniculectomy and brachioplasty. Photos taken today. RTC 4mo. Medications: Refilled ondansetron 4 mg PO Q8H PRN 20 tabs 2RF nausea and vomiting
[2025-01-26 13:28] VITALS: BP 140/84; PULSE 82; TEMP 36.6; O2SAT 97; BMI 29.3
--- OUTSIDE RECORDS SUMMARY | 2025-01-26 13:49 | XMS_ITS | Clinical Summary ---
Author Organization [facility] [address] [place] [address] [place] [phone] Phone Care Team Providers Care Barrel Raiser Name Role Phone Primo Villalobos MD Primary [...] (VITAMIN D3 ORAL) Take by mouth. Active thiamine 100 mg tablet Take 1 tablet (100 mg total) by mouth 1 (one) time each day. 05/14/2024 Active ondansetron (ZOFRAN) 4 mg tablet Take 1 tablet (4 mg total) by mouth every 8 (eight) hours if needed for nausea or vomiting. 30 tablet 1 06/24/2024 Active Zepbound 15 mg/0.5 mL injectionIndicat ions:Class 2 severe obesity due to excess calories with serious comorbidity and body mass index (BMI) of 35.0 to 35.9 in adult Inject 0.5 mL (15 mg total) under the skin every 7 (seven) days. 3 mL 5 08/06/2024 Active pantoprazole (PROTONIX) 20 mg EC tablet TAKE ONE TABLET BY MOUTH EVERY DAY 90 tablet 1 10/14/2024 Active atorvastatin (LIPITOR) 20 mg tablet TAKE ONE TABLET BY MOUTH EVERY DAY 90 tablet 1 11/10/2024 Active Active Problems Problem Noted Date Diagnosed Date Severe obesity (CMS/HCC V24, CMS/HCC V28) 2023 COVID-19 09/18/2021 Overview (12/05/2023): Home test 09/15/21 Hyperlipidemia 05/06/2008 Obesity (BMI 30.0-34.9) 2005 Resolved Problems Problem Noted Date Diagnosed Date Resolved Date HTN (hypertension) 06/13/2016 Chronic low back pain 07/03/20112024 Mild dysplasia of cervix 09/11/201002/2024 Asthma 2005 05/25/2024 Encounters Date Type Department Care Team Description 11/22/2024 Results Follow-Up Adult Medicine [address] [phone] Primo Villalobos MD 11/18/2024 1:55 PM EDT - 11/18/2024 11:59 PM EDT Hospital Encounter Radiology Department - [address] [phone] Encounter for screening mammogram for breast cancer Discharge Disposition: Home or Self Care 11/12/2024 Telephone Adult Medicine [address] [phone] Joy Zamora PA 11/12/2024 Telephone Adult Medicine [address] [phone] Joy Zamora PA 11/11/2024 Telephone Adult Medicine [address] [phone] Hilda Manzo MA from Last 3 Months Immunizations Immunization Administration Dates Next Due Hepatitis B (Qpuecal-T-Ozjlr , Recombivax HB-Adult) 19yo and older 06/15/2008,05/06/2008 [...] History Medical History Date Comments Morbid obesity ([facility] V24, [facility] V28) Hyperlipidemia Mild intermittent asthma Other specified [...] care for your loved ones. For example, rn maternal child or elderly care for an older adult? [...] Date Recorded What is your living situation? 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 [employer] Not on file Not on fi le Not on file Obstetrics History Para Term AB IAB SAB Ectopic Multiple Livin g Live Births 2 2 2 2 Date Outcome GA Total Labor Labor/2nd/3rd Weight Sex Type Anes PTL Susi A1 A5 Name Clin Term Term Last Filed Vital Signs Vital Sign Reading [...] Care Team (Late st Contact Info) Description 02/11/2025 11:00 AM EST Office Visit Adult Medicine [facility] [address], [place] [phone] Primo Villalobos MD [address], [place] Health Maintenance Due Date Last Done Comments Hepatitis B Vaccines (3 of 3 - 19+ 3-dose series) 11/06/2008 06/15/2008, 05/06/2008 Cervical Cancer Screening: HPV 03/09/2025 03/09/2020 DTaP,Tdap,and Td Vaccines (4 - Td or Tdap) 03/22/2025 07/03/2011, 08/10/2002, 08/10/2002 Postponed from 07/02/2021 (Patient Refused) Social Influencers of Health Screening 03/22/2025 03/22/2024 Breast Cancer Screening 11/18/2025 11/19/19, 11/12/2023, 11/12/2023, Additional history exists Cholesterol Screening (Lipid Panel) 04/05/2029 04/05/2024, 12/01/2019 Colorectal Cancer Screening: Colonoscopy 12/03/2032 12/03/2022 RSV Immunization Adult Patients (1 - 1-dose 75+ series) 2052 HIV Screening Completed 12/01/2019 Influenza Vaccine Discontinued [...] Procedure Name Priority Date/Time Associated Diagnosis Comments MG MAMMO DIGITAL SCREENING W BRUCE BILAT Routine 11/18/2024 2:07 PM EDT Encounter for screening mammogram for breast cancer INTERFERON GAMMA INTERPRETATION Routine 11/12/2024 10:59 AM EDT Screening for tuberculosis INTERFERON GAMMA ANTIGEN 2 Routine 11/12/2024 10:59 AM EDT Screening for tuberculosis INTERFERON GAMMA ANTIGEN 1 Routine 11/12/2024 10:59 AM EDT Screening for tuberculosis INTERFERON GAMMA MITOGEN Routine 11/12/2024 10:59 AM EDT Screening for tuberculosis INTERFERON GAMMA NIL Routine 11/12/2024 10:59 AM EDT Screening for tuberculosis INTERFERON GAMMA FOR TB, QUALITATIVE Routine 11/12/2024 10:59 AM EDT Screening for tuberculosis HEPATITIS PANEL, ACUTE WITH REFLEX TO CONFIRMATION Routine 05/25/2024 9:28 AM EDT Elevated LFTs LIPID PANEL WITH REFLEX TO DIRECT LDL Routine 04/05/2024 9:47 AM EST Pure hypercholesterolemia HM DEPRESSION SCREENING Routine 11/12/2023 EXTERNAL COLONOSCOPY REPORT Routine 12/03/2022 12:00 AM EDT HM HPV Routine 03/09/2020 HM HIV SCREENING Routine 12/01/2019 from Last 3 Months or Most Recently Relevant to Health Maintenance Results * MG Mammo Digital Screening w Bruce bilat (11/18/2024 2:07 PM EDT) Anatomical Region Laterality Modality Breast Bilateral Mammography 11/22/2024 10:2 1 AM EDT Impressions 11/22/2024 10:22 AM EDT No mammographic evidence of malignancy. BREAST DENSITY: B - There are scattered areas of fibroglandular density. BI-RADS CATEGORY: 1 - NEGATIVE RECOMMENDATION: Screening bilateral mammogram is recommended in 1 year. MAMMO LOCATION: [facility], [address] [place] [address], [id number], . -------- FINAL REPORT -------- Dictated By: Bianca Chaparro Dictated Date: 11/22/2024 10:21 ET Assigned Physician: Bianca Chaparro Reviewed and Electronically Signed By: Bianca Chaparro Signed Date: 11/22/2024 10:22 ET Workstation ID: [id number] Transcribed By: Self Edit Transcribed Date: 11/22/2024 10:21 ET Narrative 11/22/2024 10:22 AM EDT EXAM: Screening Mammogram CLINICAL: 49 years old, Female, routine annual exam. COMPARISON: 11/12/2023 and as far back as 12/01/2017 TECHNIQUE: Bilateral MLO and CC views were obtained digitally with 3-D mammogram (digital breast tomosynthesis). Computer-aided detection was utilized in evaluation of this exam (CAD). FINDINGS: No new suspicious mass, architectural distortion, or suspicious calcifications. Procedure Note Bianca Chaparro MD - 11/22/2024 EXAM: Screening Mammogram CLINICAL: 49 years old, Female, routine annual exam. COMPARISON: 11/12/2023 and as far back as 12/01/2017 TECHNIQUE: Bilateral MLO and CC views were obtained digitally with 3-Dmammogram (digital breast tomosynthesis). Computer-aided detection wasutilized in evaluation of this exam (CAD). FINDINGS: No new suspicious mass, architectural distortion, or suspiciouscalcifications. IMPRESSION: No mammographic evidence of malignancy. BREAST DENSITY: B - There are scattered areas of fibroglandular density. BI-RADS CATEGORY: 1 - NEGATIVE RECOMMENDATION: Screening bilateral mammogram is recommended in 1 year. MAMMO LOCATION: [facility], [address] [place] [address], [phone], . -------- FINAL REPORT -------- Dictated By: Bianca Chaparro Dictated Date: 11/22/2024 10:21 ET Assigned Physician: Bianca Chaparro Reviewed and Electronically Signed By: Bianca Chaparro Signed Date: 11/22/2024 10:22 ET Workstation ID: [id number] Transcribed By: Self Edit Transcribed Date: 11/22/2024 10:21 ET Primo Villalobos MD IMG BI PROCEDURES Chari l Result * Interferon gamma interpretation (11/12/2024 10:59 AM EDT) [facility] Quantiferon Plus Interpretation Negative Negative LAB CHEMISTRY METHOD 11/13/2024 12:47 PM EDT [facility] Blood Venous blood specimen / Unknown Venipuncture / Unknown 11/12/2024 10:59 AM EDT 11/12/2024 10:59 AM EDT Delmer Franco MD LAB BLOOD ORDERABLES Final Result Performing Organization Address City/[facility]/ZIP Co de Phone Number [facility] [address] [place] [address], * Interferon gamma antigen 2 (11/12/2024 10:59 AM EDT) Blood Venous blood specimen / Unknown Venipuncture / Unknown 11/12/2024 10:59 AM EDT 11/12/2024 10:59 AM EDT Delmer Franco MD LAB BLOOD ORDERABLES Final Result Performing Organization Address City/[facility]/ZIP Co de Phone Number [facility] [address] [place] [address], [place] [phone] * Interferon gamma antigen 1 (11/12/2024 10:59 AM EDT) Blood Venous blood specimen / Unknown Venipuncture / Unknown 11/12/2024 10:59 AM EDT 11/12/2024 10:59 AM EDT Delmer Franco MD LAB BLOOD ORDERABLES Final Result Performing Organization Address City/[facility]/ZIP Co de Phone Number [facility] [address] [place] [address], * Interferon gamma mitogen (11/12/2024 10:59 AM EDT) Blood Venous blood specimen / Unknown Venipuncture / Unknown 11/12/2024 10:59 AM EDT 11/12/2024 10:59 AM EDT us Delmer Franco MD LAB BLOOD ORDERABLES Final Result Performing Organization Address [facility]/ZIP Co de Phone Number [facility] [address] [place] [address], * Interferon gamma NIL (11/12/2024 10:59 AM EDT) Blood Venous blood specimen / Unknown Venipuncture / Unknown 11/12/2024 10:59 AM EDT 11/12/2024 10:59 AM EDT Delmer Franco MD LAB BLOOD ORDERABLES Final Result Performing Organization Address [facility] de Phone Number [facility] [address] [place] [address], [place] [phone] * Hepatitis panel, acute with reflex to confirmation (05/25/2024 9:28 AM EDT) Hepatitis B Surface Ag Negative Negative LAB CHEMISTRY METHOD 05/25/2024 5:43 PM EDT [facility] Hepatitis A Antibody IgM Negative Negative LAB CHEMISTRY METHOD 05/25/2024 5:43 PM EDT [facility] Hep B Core IgM Negative Negative LAB CHEMISTRY METHOD 05/25/2024 5:43 PM EDT [facility] Hepatitis C Antibody Negative Negative LAB CHEMISTRY METHOD 05/25/2024 5:43 PM EDT [facility] Blood Venous blood specimen / Unknown Venipuncture / Unknown 05/25/2024 9:28 AM EDT 05/25/2024 9:28 AM EDT Joy VERGARA LAB BLOOD ORDERABLES Final Resul t Performing Organization Address City/[facility] Co de Phone Number [facility] [address] [place] [address], [place] [phone] * (ABNORMAL) Lipid panel with reflex to direct LDL (04/05/2024 9:47 AM EST) Cholesterol 225(H) 0 - 200 mg/dL LAB CHEMISTRY METHOD 04/05/2024 3:07 PM EST [facility] Triglycerides 100 0 - 150 mg/dL LAB CHEMISTRY METHOD 04/05/2024 3:07 PM EST [facility] HDL 57 >=40 mg/dL LAB CHEMISTRY METHOD 04/05/2024 3:07 PM EST [facility] LDL Calculated 148(H) 0 - 100 mg/dL LAB CHEMISTRY METHOD 04/05/2024 3:07 PM EST [facility] VLDL Cholesterol Blake 20 mg/dL LAB CHEMISTRY METHOD 04/05/2024 3:07 PM EST [facility] Non HDL Chol. (LDL+VLDL) 168(H) <145 mg/dL LAB CHEMISTRY METHOD 04/05/2024 3:07 PM EST [facility] Chol/HDL Ratio 3.9 0.0 - 4.4 LAB CHEMISTRY METHOD 04/05/2024 3:07 PM EST [facility] Blood Venous blood specimen / Unknown Venipuncture / Unknown 04/05/2024 9:47 AM EST 04/05/2024 9:47 AM EST us Joy Noah VERGARA LAB BLOOD ORDERABLES Final Resul t [facility] [address] [place] [address], [place] [phone] * Depression Screening (11/12/2023) Depression Screening Abstracted us Historical Provider MD HEALTH MAINTENANCE Final Result * External Colonoscopy Report (12/03/2022 12:00 AM EDT) Anatomical Region Laterality Modality Endoscopy Historical Provider GI~PROCEDURE ORDERABLES E dited Result - Final * Cervical Cancer Screening: HPV (03/09/2020) Pathologist [facility] Cervical Cancer Screening: HPV Abstracted ,Negative Historical Provider HEALTH MAINTENANCE Final Result * HIV Screening (12/01/2019) Pathologist [facility] HIV Screening Abstracted Historical Provider HEALTH MAINTENANCE Final Result from Last 3 Months or Most Recently Relevant to Health Maintenance Insurance [employer] Care Teams Barrel Raiser Relationship Specialty Start Date End Date rPimo Villalobos MD [address] [place] [phone] PCP - General 12/11/22
--- OUTSIDE RECORDS SUMMARY | 2025-01-26 13:49 | XMS_ITS | Encounter Summary ---
Author Organization [facility] Address [address] [place] [address] Care Team Providers Care Head Nurse Name Role Phone Primo Villalobos MD Primary Care Provider Encounter Details Date Type Department Care Team ([facility] st Contact Info) Description 11/22/2024 Results Follow-Up Adult Medicine [facility] [address], [place] [phone] Primo Villalobos MD [address] [place], [place] Social History Tobacco Use Types Packs/Day [...] for your loved ones. For example, child watch attendant or elderly care for an older adult? 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 [employer] Not on file Not on fi le Not on file documented as of this encounter Plan of Treatment Upcoming Encounters Date Type Department Care Team (Late st Contact Info) Description 02/11/2025 11:00 AM EST Office Visit Adult Medicine [address] [phone] Primo Villalobos MD [address] [place] [address] [place] [phone] documented as of this encounter Visit Diagnoses Not on filedocumented in this encounter Additional Health Concerns Assessment Noted Time PHQ-9 Depression Total Score: 0 03/22/19 25 12:46 PM EST documented as of this encounter Care Teams Head Nurse Relationship Specialty Start Date End Date Primo Villlaobos MD [address] [place], [place] PCP - General 12/11/22 documented as of this encounter
== END 2025-01-26 14:03 | disposition home or self-care (01) ==
LOC: HO.HBS 11:26
PROVIDERS: PCP Internal Medicine; Visit Provider Physician Assistant Surgical
DX: E66.3 Overweight (principal); Z68.29 Body mass index [BMI] 29.0-29.9, adult; L98.7 Excessive and redundant skin and subcutaneous tissue; Z90.3 Acquired absence of stomach [part of]; Z98.84 Bariatric surgery status
CPT/HCPCS: 99214

== ENCOUNTER → 2025-01-26 11:25 | Outpatient (BNVA) | payer OTHER, SELFPAY | PROVIDERS: PCP Internal Medicine; Visit Provider Physician Assistant Surgical | DX: L98.7 Excessive and redundant skin and subcutaneous tissue (principal); E66.9 Obesity, unspecified; Z98.84 Bariatric surgery status; Z68.29 Body mass index [BMI] 29.0-29.9, adult | CPT/HCPCS: 99212 ==